=== PATIENT | male | born 1970 | race Caucasian/White ===

== ENCOUNTER 2018-07-01 05:37 | Emergency (ER) | payer SELFPAY ==
--- NOTE | 2018-07-01 06:37 | ER Document Report ---
ED General - General Mode of Arrival: Medic Information source: Patient - HPI Onset: Just prior to arrival Onset/Duration: Sudden Quality of pain: No pain Severity: None Pain Level: Denies Associated symptoms: None Exacerbated by: Denies Relieved by: Denies <CHELI BARRY - Last Filed: 07/01/18 14:55> <ANGELICA DAVILA - Last Filed: 07/02/18 09:40> - General Stated Complaint: PSYCH Time Seen by Provider: 07/01/18 05:49 Notes: Patient brought in by EMS for anxiousness, paranoid delusions, hallucinations. Patient is unable to provide a history. Patient does not know what medical problems he has, if he is on medications, how he came to the emergency dep artment. In the room, patient is paranoid that the police are after him. After reassurance that no police are here or after him he continues to ask questions like "are they here to arrest me?", "where are the handcuffs?", "Is there a dog here you're going to have attack me?", "Are you planning on tazing me?", "Are you going to send me to skilled nursing?". Patient will also make comments about things that are not there. He said, "look at my boots in the corner, they have dog shit on them." He was pointing to the corner but no boots were there. He also said that he needed to take the phone call and was looking for his "ringing phone" but no phone was around. (CHELI BARRY) Past Medical History - General Information source: Patient - Social History Smoking Status: Unknown if Ever Smoked Family History: Reviewed & Not Pertinent <CHELI BARRY - Last Filed: 07/01/18 14:55> Review of Systems - Review of Systems Constitutional: No symptoms reported EENT: No symptoms reported Cardiovascular: No symptoms reported Respiratory: No symptoms reported Gastrointestinal: No symptoms reported Genitourinary: No symptoms reported Male Genitourinary: No symptoms reported Musculoskeletal: No symptoms reported Skin: No symptoms reported Hematologic/Lymphatic: No symptoms reported Neurological/Psychological: Anxiety, Hallucinations -: Yes All other systems reviewed and negative <CHELI BARRY - Last Filed: 07/01/18 14:55> Physical Exam <CHELI BARRY - Last Filed: 07/01/18 14:55> - Vital signs Vitals: Temp Pulse Resp BP Pulse Ox 98.3 F 85 20 170/80 H 98 07/01/18 06:20 07/01/18 06:20 07/01/18 06:20 07/01/18 06:20 07/01/18 06:20 - Notes Notes: PHYSICAL EXAMINATION: GENERAL: Well-appearing, well-nourished and in no acute distress. HEAD: Atraumatic, normocephalic. EYES: Pupils equal round and reactive to light, extraocular movements intact, sclera anicteric, conjunctiva are normal. ENT: Nares patent, oropharynx clear without exudates. Moist mucous membranes. NECK: Normal range of motion, supple without lymphadenopathy LUNGS: Breath sounds clear to auscultation bilaterally and equal. No wheezes rales or rhonchi. HEART: Regular rate and rhythm without murmurs ABDOMEN: Soft, nontender, nondistended abdomen. No guarding, no rebound. No masses appreciated. Musculoskeletal: Normal range of motion, no pitting or edema. No cyanosis. NEUROLOGICAL: Cranial nerves grossly intact. Normal speech, normal gait. Normal sensory, motor exams PSYCH: anxious. +hallucinations SKIN: Warm, Dry, normal turgor, no rashes or lesions noted. (CHELI BARRY) Course - Laboratory Result Diagrams: 07/01/18 06:59 07/01/18 06:59 <CHELI BARRY - Last Filed: 07/01/18 14:55> - Laboratory Result Diagrams: 07/01/18 06:59 07/01/18 06:59 <ANGELICA DAVILA - Last Filed: 07/02/18 09:40> - Re-evaluation Re-evalutation: 07/01/18 07:17 EKG: Ventricular rate 73, MD interval 168, cures duration 90, QTc 437, normal sinus rhythm. No ST segment elevation. Peaked T waves appreciated. 07/01/18 10:[address] Núñez, the patient's primary care physician. He knows him very well. He states that the patient's sodium is been chronically low for the last 3 years. He feels that the patient needs to be admitted to a psychiatric treatment facility. Behavioral health contacted. Recommend Thorazine 50mg q6 PRN and cogentin 1mg daily. They are trying to find placement. Urinalysis pending 07/01/18 14:53 07/01/18 14:55 (CHELI BARRY) - Vital Signs Vital signs: Temp Pulse Resp BP Pulse Ox 97.8 F 70 16 115/70 100 07/02/18 08:00 07/02/18 08:00 07/02/18 08:00 07/02/18 08:00 07/02/18 08:00 - Laboratory Laboratory results interpreted by me: 07/01/18 07/01/18 06:59 06:59 RBC 3.91 L Hgb 13.2 L Hct 36.3 L MCH 33.7 H MCHC 36.2 H Plt Count 454 H Sodium 126.5 L Chloride 92 L Glucose 119 H Salicylates < 1.0 L Acetaminophen < 10 L Discharge <CHELI BARRY - Last Filed: 07/01/18 14:55> <ANGELICA DAVILA - Last Filed: 07/02/18 09:40> - Discharge Clinical Impression: Malingering Condition: Stable Disposition: HOME, SELF-CARE Additional Instructions: You have been evaluated and assessed at [facility] Emergency Department by both the medical and behavioral health teams after presenting for altered mental status and are now deemed appropriate for discharge. While in the ED, you received an initial medical screening, lab work, EKG, medications, direct staff observation, clinical evaluation, physician assessment, and outpatient resources. You were cleared from both services and record review revealed a history of alcohol abuse and collateral report indicated a pattern of presenting to the ED in lieu of presenting for scheduled court dates. You are encouraged to develop positive co ping skills through outpatient therapy and medication management. Mobile crisis resources were provided to you for when crisis situations arise. You are also encouraged to to follow up with your outpatient mental health provider referred to you by [facility] last week and maintain compliance with your prescribed medication. Referrals: [facility] [Provider Group] - Follow up as needed
--- NOTE | 2018-07-01 07:01 | EKG REPORT ---
SEVERITY:- NORMAL ECG - SINUS RHYTHM : Confirmed by: Pooja Austin 01-Jul-2018 07:01:17
[2018-07-01 07:28] LABS: ABSOLUTE BASOPHILS # (AUTO) 0.1 10^3/uL (0.0-0.2); ABSOLUTE LYMPHOCYTES (AUTO) 1.3 10^3/uL (0.5-4.7); ABSOLUTE MONOCYTES (AUTO) 0.8 10^3/uL (0.1-1.4); ABSOLUTE NEUT (AUTO) 4.8 10^3/uL (1.7-8.2); BASOPHILS % (AUTO) 0.8 % (0-2); EOSINOPHILS % (AUTO) 0.5 % (0-6); HEMATOCRIT 36.3 % (37.9-51.0); HEMOGLOBIN 13.2 g/dL (13.5-17.0); LYMPHOCYTES % (AUTO) 18.3 % (13-45); MEAN CORPUSCULAR HEMOGLOBIN 33.7 pg (27.0-33.4); MEAN CORPUSCULAR HGB CONC 36.2 g/dL (32.0-36.0); MEAN CORPUSCULAR VOLUME 93 fl (80-97); MONOCYTES % (AUTO) 11.4 % (3-13); PLATELET COUNT 454 10^3/uL (150-450); RED BLOOD COUNT 3.91 10^6/uL (4.35-5.55); RED CELL DISTRIBUTION WIDTH 13.4 % (11.5-14.0); TOTAL CELLS COUNTED % (AUTO) 100 %
[2018-07-01 07:42] LABS: ACETAMINOPHEN < 10 ug/mL (10-30); ALCOHOL < 10 mg/dL (NONE DETECTED); ALKALINE PHOSPHATASE 68 U/L (38-126); ANION GAP 11 (5-19); ASPARTATE AMINO TRANSFERASE 28 U/L (17-59); BILIRUBIN,DIRECT 0.2 mg/dL (0.0-0.4); BILIRUBIN,TOTAL 0.6 mg/dL (0.2-1.3); BLOOD UREA NITROGEN 12 mg/dL (7-20); CALCIUM 9.8 mg/dL (8.4-10.2); CARBON DIOXIDE 24 mmol/L (22-30); CHLORIDE 92 mmol/L (98-107); GLUCOSE 119 mg/dL (75-110); POTASSIUM 4.5 mmol/L (3.6-5.0); SALICYLATE < 1.0 mg/dL (2.0-20.0); SODIUM 126.5 mmol/L (137-145); TOTAL PROTEIN 7.3 g/dL (6.3-8.2)
[2018-07-01 08:06] LABS: ALANINE AMINOTRANSFERASE 48 U/L (21-72)
[2018-07-01] MEDS ORDERED: NORMAL SALINE 1000 ML 1,000 ML IV ONE (08:08)
[2018-07-01 08:43] LABS: FREE T4 (FREE THYROXINE) 1.09 ng/dL (0.78-2.19)
[2018-07-01 08:57] LABS: THYROID STIMULATING HORMONE 0.59 uIU/mL (0.47-4.68)
[2018-07-01] MEDS ORDERED: CHLORPROMAZINE HCL INJ 25 MG/1 ML AMPULE IV ONE (11:20)
[2018-07-01] MEDS ORDERED: BENZTROPINE MESYLATE 1 MG TABLET PO ONE (11:21)
[2018-07-01] MEDS ORDERED: CHLORPROMAZINE HCL 50 MG TABLET PO ONE (11:22)
[2018-07-01] MEDS ORDERED: CHLORPROMAZINE HCL 50 MG TABLET PO PRN (11:22)
[2018-07-01] MEDS ORDERED: CHLORPROMAZINE HCL INJ 25 MG/1 ML AMPULE IM PRN (12:01)
[2018-07-01] MEDS: BENZTROPINE MESYLATE INJ 2 MG/2 ML AMPULE IM SCH (12:14)
--- NOTE | 2018-07-01 16:55 | PSYCHOLOGICAL NOTE ---
Psych Note - Psych Note Date seen by psych provider: 07/01/18 Time seen by psych provider: 07:30 Psych Note: Reason for consult: Anxiety, paranoid delusions Contact Permissions: Patient is a 48 yo male presenting to the ED via EMS called by his mother for concerns of anxiety and paranoid delusions. Chart review shows patient was seen in 12/2015 for erratic behavior was positive for Benzodiazepines, seen on 06/01, 06/04, and 06/07/2018 for AV/H with EtOH. Toxicology screen is negative for all substances today. There were abnormalities in his chemistry and hematology noted. Patient reports with flight of ideas and in rapid succession he's been awake for 6 days, has no idea who he is, reports seeing a woman cursing at him in the hallway, reports he has a big glass pill on his face that's impeding his sight (he wears glasses), Evaluators shoes are dog shit, thinks he won the [employer] and has lots of money, has hand tremors and sees himself walking down the hallway. Patient has been observed threatening staff that he will urinate on himself and he has also been observed to be completely lucid and comprehending and cooperative when being assisted out of his restraints so that he and his bed could be cleaned up after he had urinated on himself. Patient's sister Marjorie Moeller [phone] reports patient has no MH hx and the family has no MH hx. Patient had a similar episode in 2016 of AMS which cleared after treating low sodium and high blood pressure. More recently, patient's family started noticing changes in patient 2 months ago i.e. confusion, can't think/focus, is not sleeping/drinks 2-3 beers to sleep, speech is tangential/thoughts disorganized. On 05/30/18 patient was asked by his employer, [email or web address] to take leave due to AMS, shortly thereafter he was accused and charged with touching a woman inappropriately. Patient was fired from [email or web address] on 06/17/[address] was set for 06/25/18. Patient admitted himself voluntarily to [facility] on 06/24/18 and was discharged on 07/05/18, was treated for low sodium and high blood pressure, was fine on Sunday and then on Kevin spent $8000 on his mothers credit card and barricaded himself in her home causing her to call EMS for his bizarre behavior. Patient is alert and oriented x 4. Mood is anxious with congruent affect. Patient denies SI, HI and endorses visual hallucinations but does not appear to be responding to internal stimuli aeb maintains good eye contact, engages with staff attention seeking versus isolating and responding to his own internal reality, comprehends his treatment and no delusions were noted. Conversational speech was WNL for rate, tone, and prosody. Thought processes were linear, organized, and rational when it suited him e.g. when he wanted out of restraint to get cleaned up. Intellectual abilities were estimated within the average range. Attention/concentration was WNL while, insight, judgment, and impulse control were poor. Diagnosis: R/O V65.2 Z76.5 Malingering Medication recommendations as per psychiatric provider, Dr. Koenig are as follows: Thorazine 50mg Q6 PRN Cogentin 1mg daily Patient is recommended for IVC due to risk of harm to self and others aeb erratic behavior and bizarre verbalizations indicate concern of poor insight, judgment, and impulse control. Plan is to hold overnight for further observation and medication stabilization. There is concern of malingering as patient's presentation is inconsistent for psychosis. Further, it is known that patient admitted himself voluntarily to [facility] on 06/24/18 in lieu of going to court. His presentations of AMS to the ED in May also coincide with court dates. Nevertheless, his MRI does show chronic microvascular ischemic changes. Consulted Dr. Covington in the care and treatment of this patient and ED physician who is in agreement with recommendation and disposition.
[2018-07-01 18:41] LABS: APPEARANCE,URINE CLEAR; BILIRUBIN,URINE NEGATIVE (NEGATIVE); COLOR,URINE YELLOW; GLUCOSE, URINE NEGATIVE (NEGATIVE); KETONES,URINE NEGATIVE (NEGATIVE); LEUKOCYTE ESTERASE,URINE NEGATIVE (NEGATIVE); NITRITE,URINE NEGATIVE (NEGATIVE); PROTEIN,URINE NEGATIVE (NEGATIVE); URINE SPECIFIC GRAVITY 1.004; UROBILINOGEN,URINE NEGATIVE mg/dL (<2.0)
[2018-07-01 18:52] LABS: URINE AMPHETAMINES SCREEN NEGATIVE; URINE BARBITURATES SCREEN NEGATIVE; URINE BENZODIAZEPINES SCREEN NEGATIVE; URINE COCAINE SCREEN NEGATIVE; URINE MARIJUANA (THC) SCREEN NEGATIVE; URINE METHADONE SCREEN NEGATIVE; URINE PHENCYCLIDINE SCREEN NEGATIVE
[2018-07-02 08:41] VITALS: BP 115/70
[2018-07-02] MEDS: BENZTROPINE MESYLATE INJ 2 MG/2 ML AMPULE IM SCH (09:53)
--- NOTE | 2018-07-02 09:54 | ER Document Report ---
Doctor's Note Notes: 07/02/18 09:52 Patient seen and evaluated by myself. Vital signs are stable. No issues overnight per nursing. Behavioral health was consulted yesterday. They saw the patient and feel that the patient may be malingering. They state that all of his presentations correspond with court dates. Patient symptoms have completely resolved. They feel that he can be discharged. They provided him information for [facility] and patient has an appointment on Sunday. Patient's mom is coming to pick him up. Patient currently denies any suicidal or homicidal ideations. Patient is awake, alert, oriented x3. He is not having any delusions or hallucinations in the room. Patient is stable for discharge.
[2018-07-02] MEDS ORDERED: BENZTROPINE MESYLATE 1 MG TABLET PO SCH (10:00)
--- NOTE | 2018-07-02 14:13 | PSYCHOLOGICAL NOTE ---
Psych Note - Psych Note Date seen by psych provider: 07/02/18 Time seen by psych provider: 09:15 Psych Note: Reason for consult: Anxiety, paranoid delusions 1st re-evaluation Contact Permissions: Patient is a 48 yo male presenting to the ED via EMS called by his mother for concerns of anxiety and paranoid delusions. Chart review shows patient was seen in 12/2015 for erratic behavior was positive for Benzodiazepines, seen on 06/01, 06/04, and 06/07/2018 for AV/H with EtOH. Toxicology screen is negative for all substances for this visit. There is no MH or family MH hx for this patient who was behavioral yesterday endorsing visual hallucinations aeb would not follow direction to stay in his room, was screaming, threatening to urinate and defecate on himself and did urinate on himself and ultimately was restrained due to his unrelenting onslaught of behaviors. Medication recommendations were provided and patient slept through the day. Today by all staff report and Legal Director observation, patient is clear, calm, and coherent, has been pleasant and polite. Patient showered then called his mother to come pick him up for discharge prior to being evaluated. He reports today that he is "back to normal" and explains his AMS yesterday was due to [employer] didn't fill his amlodipine and buspar from his treatment at [facility]. These are ready now and he can pick them up today on his way home per report. Patient denies SI, HI, and AV/H. Patient was then confronted with his court dates coinciding with his last few [facility] ED visits and his [facility] voluntary admission last week. He does not deny the correlation and offers states he will call the [employer]ating [employer] T[employer]'s office to push back his court date. Confronted patient that his behavior was perceived and understood to be malingering and provided education that abuse of emergency services was considered a criminal offense. Patient verbalized his understanding. He was then provided with psycho-education on utilization of MCS and encouraged to utilize this service and follow up with his PCP Dr. Núñez. Patient was additionally provided with a resource list for local MH providers. Patient is alert and oriented x 4. Mood is euthymic with congruent affect. Patient denies/endorses SI, HI, and AV/H, does not appear to be responding to internal stimuli, and no delusions were noted. Conversational speech was WNL for rate, tone, and prosody. Eye contact was well maintained. Immediate and remote memory were good. Thought processes were linear, organized, and rational. Intellectual abilities were estimated within the average range. Attention/concentration was WNL while, insight, judgment, and impulse control were good. Diagnosis: R/O V65.2 Z76.5 Malingering Medication recommendations as per psychiatric provider, Dr. Koenig are as follows: Thorazine 50mg Q6 PRN Cogentin 1mg daily Impression/Plan: Patient is psychiatrically clear from acute psychiatric services and recommend to rescind IVC due to no risk of harm to self or others aeb Patient denies SI, HI, and AV/H, does not appear to be responding to internal stimuli, and no delusions were noted. 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 Núñez. Patient was confronted with his pattern of presenting with psychiatric symptoms to avoid court which he does not deny. Confronted patient that his behavior was perceived and understood to be malingering and provided education that abuse of emergency services was considered a criminal offense. Patient verbalized his understanding. He was then provided with psycho- education on utilization of MCS and encouraged to utilize this service and follow up with his PCP Dr. Núñez. Patient was additionally provided with a resource list for local MH providers. Consulted Dr. Covington in the care and treatment of this patient and ED physician who is in agreement with disposition and recommendation.
== END 2018-07-02 10:49 | disposition home or self-care (01) ==
LOC: EDSEX → ER 05:37
DX: Z76.5 Malingerer [conscious simulation] (principal); F41.9 Anxiety disorder, unspecified; F20.0 Paranoid schizophrenia; R44.3 Hallucinations, unspecified
CPT/HCPCS: 93005; 99285; 96372; 96360; 36415; 84439; 80307 ×4; 84443; 85025; 80053; 81001; 93010; J0515 ×2; J3230; J7030

== ENCOUNTER 2018-07-07 09:53 | Inpatient (IN) | payer SELFPAY ==
--- NOTE | 2018-07-07 10:37 | ER Document Report ---
ED Psych Disorder / Suicide - General Chief Complaint: Psych Problem Stated Complaint: PSYCH EVAL Time Seen by Provider: 07/07/18 10:30 Primary Care Provider: ELE MANLEY MD [Primary Care Provider] - Follow up as needed Information source: Emergency Med Personnel Notes: 48-year-old male with past medical history as recorded who was recently seen here and evaluated for some change in mental status. Patient has had troubles with benzodiazepines and alcohol in the past but during his last visit he was cleaned of toxins. Patient at that time was having some flight of ideas and some erratic behavior. It was determined that the patient possibly was having malingering type behavior. Patient was seen by the psychology team and initially started on medications by Dr. Koenig: Thorazine 50mg Q6 PRN Cogentin 1mg daily Patient presents by EMS today after a neighbor called stating that the patient was altered in the long-standing the naked. Patient became slightly combative so they did provide Ativan and Haldol. Patient also has a history in the past of high blood pressure and low sodium. TRAVEL OUTSIDE OF THE [place] IN LAST 30 DAYS: No - HPI Patient complains to provider of: Other - Unable to determine secondary to patient's condition Onset: Other - Unable to determine secondary to patient's condition Quality of pain: Other - Unable to determine secondary to patient's condition Suicide Risk Factors: Other - See above Situational problems related to: Lost job - Recently with [employer] Associated symptoms: Other - Unable to determine secondary to patient's condition Similar symptoms previously: Yes Recently seen / treated by doctor: Yes - Related Data Allergies/Adverse Reactions: No Known Allergies Allergy (Verified 07/04/18 12:52) Past Medical History - Social History Smoking Status: Unknown if Ever Smoked Family History: Reviewed & Not Pertinent Patient has suicidal ideation: No Patient has homicidal ideation: No - Past Medical History Cardiac Medical History: Reports: Hx Hypertension Renal/ Medical History: Denies: Hx Peritoneal Dialysis Psychiatric Medical History: Reports: Hx Depression - Immunizations Hx Diphtheria, Pertussis, Tetanus Vaccination: Yes Review of Systems - Review of Systems -: Yes ROS unobtainable due to patient's medical condition Physical Exam - Vital signs Vitals: Temp Pulse Resp BP Pulse Ox 97.4 F 90 18 100/64 95 07/07/18 10:08 07/07/18 10:08 07/07/18 10:08 07/07/18 10:08 07/07/18 10:08 Notes: Reviewed vital signs and nursing note as charted by RN. CONSTITUTIONAL: Patient's eyes are closed and he is protecting his airway with stable vital signs HEAD: Normocephalic; atraumatic EYES: PERRL ENT: Normal nose; no rhinorrhea; moist mucous membranes; pharynx without lesions noted NECK: Supple without meningismus; no cervical lymphadenopathy, no masses CARD: Regular rate and rhythm; no murmurs; symmetric distal pulses RESP: Normal chest excursion without splinting or tachypnea; breath sounds clear and equal bilaterally; no wheezes, no rhonchi, no rales ABD/GI: Normal bowel sounds; non-distended; soft, no palpable organomegaly or masses BACK: The back appears normal EXT: Normal ROM in all joints; no edema SKIN: No acute lesions noted NEURO: Patient is currently moving only to pain Course - Re-evaluation Re-evalutation: 07/07/18 10:37 Given the above history and physical examination, we will place the patient on the monitor, elevate the bed 45 degrees, and obtain basic labs, tox screen, including a sodium level. Given that the patient was naked in the yard with no signs of trauma, with a history as recorded, I will hold on CT scanning of the patient at this moment. The psychology team has been consulted. 07/07/18 10:55 EKG shows a heart of 67, normal sinus rhythm, normal axis, no obvious ST elevation or depression greater than 1 mm induration. No appreciable change from previous EKG 07/07/18 11:58 Labs as recorded. Patient's sodium is actually on the higher end of his baseline. 07/07/18 12:20 On repeat examination the patient still has no focal neurological deficits. He is answering questions. He denies any pain. 07/07/18 13:38 We have spoke to the family who is in the room. It does appear that the patient has had some confusion since May intermittently. He was seen at [facility], [place] as well as here as discussed above. Patient supposedly did have an MRI of the brain this past May. I will obtain a CT scan of the head at this moment. 07/07/18 14:57 Patient has been a heavy drinker. He has had confusion supposedly starting in May. Alcohol level and labs as recorded. History of low sodium in the past. MRI previously showed some small punctate lesions with no obvious strokes or hemorrhages. With the progressive onset of symptomatology in May and being a heavy drinker, with some confusion I did entertain the possibility of Wernicke's encephalopathy. The patient is oriented x4 but does have some slight gait stability. CT scan of the head is unremarkable. I did order a dose of thiamine. I did call to the primary care physician Dr Fletcher, who was very polite and agreed to admit the patient for some thiamine infusion and reassessment. Patient has had paperwork filled out for IVC given the concern for patient safety to himself, and will have a sitter with the patient. - Vital Signs Vital signs: Temp Pulse Resp BP Pulse Ox 98.4 F 67 16 112/63 99 07/07/18 15:10 07/07/18 15:10 07/07/18 15:10 07/07/18 15:10 07/07/18 15:10 - Laboratory Result Diagrams: 07/07/18 10:17 07/07/18 10:17 Laboratory results interpreted by me: 07/07/18 07/07/18 07/07/18 10:17 10:17 12:09 WBC 11.3 H RBC 3.89 L Hgb 12.8 L Hct 36.4 L Plt Count 517 H Seg Neutrophils % 89.6 H Lymphocytes % 6.0 L Absolute Neutrophils 10.1 H Sodium 127.6 L Chloride 95 L BUN 27 H Urine Ketones TRACE H Salicylates < 1.0 L Acetaminophen < 10 L Critical Care Note - Critical Care Note Total time excluding time spent on procedures (mins): 35 Discharge - Discharge Clinical Impression: Altered mental status, unspecified Qualifiers: Altered mental status type: unspecified Qualified Code(s): R41.82 - Altered mental status, unspecified Condition: Fair Disposition: ADMITTED INPATIENT Admitting Provider: [facility] Unit Admitted: Telemetry Referrals: ELE MANLEY MD [Primary Care Provider] - Follow up as needed
[2018-07-07 11:22] LABS: ABSOLUTE BASOPHILS # (AUTO) 0.1 10^3/uL (0.0-0.2); ABSOLUTE LYMPHOCYTES (AUTO) 0.7 10^3/uL (0.5-4.7); ABSOLUTE MONOCYTES (AUTO) 0.4 10^3/uL (0.1-1.4); ABSOLUTE NEUT (AUTO) 10.1 10^3/uL (1.7-8.2); BASOPHILS % (AUTO) 0.7 % (0-2); EOSINOPHILS % (AUTO) 0.1 % (0-6); HEMATOCRIT 36.4 % (37.9-51.0); HEMOGLOBIN 12.8 g/dL (13.5-17.0); MEAN CORPUSCULAR HEMOGLOBIN 32.9 pg (27.0-33.4); MEAN CORPUSCULAR HGB CONC 35.2 g/dL (32.0-36.0); MEAN CORPUSCULAR VOLUME 94 fl (80-97); MONOCYTES % (AUTO) 3.6 % (3-13); PLATELET COUNT 517 10^3/uL (150-450); RED BLOOD COUNT 3.89 10^6/uL (4.35-5.55); RED CELL DISTRIBUTION WIDTH 13.2 % (11.5-14.0); SEGMENTED NEUTROPHILS % (AUTO) 89.6 % (42-78); TOTAL CELLS COUNTED % (AUTO) 100 %; WHITE BLOOD COUNT 11.3 10^3/uL (4.0-10.5)
[2018-07-07 11:39] LABS: ALANINE AMINOTRANSFERASE 29 U/L (21-72); ALBUMIN 4.6 g/dL (3.5-5.0); ALKALINE PHOSPHATASE 74 U/L (38-126); ANION GAP 8 (5-19); ASPARTATE AMINO TRANSFERASE 38 U/L (17-59); BILIRUBIN,DIRECT 0.2 mg/dL (0.0-0.4); BILIRUBIN,TOTAL 0.5 mg/dL (0.2-1.3); BLOOD UREA NITROGEN 27 mg/dL (7-20); CALCIUM 9.7 mg/dL (8.4-10.2); CARBON DIOXIDE 25 mmol/L (22-30); CHLORIDE 95 mmol/L (98-107); GLUCOSE 96 mg/dL (75-110); POTASSIUM 4.8 mmol/L (3.6-5.0); SODIUM 127.6 mmol/L (137-145); TOTAL PROTEIN 6.9 g/dL (6.3-8.2)
[2018-07-07 11:41] LABS: ACETAMINOPHEN < 10 ug/mL (10-30); ALCOHOL < 10 mg/dL (NONE DETECTED); SALICYLATE < 1.0 mg/dL (2.0-20.0)
[2018-07-07] MEDS ORDERED: NORMAL SALINE 1000 ML 1,000 ML IV ONE (11:57)
[2018-07-07 12:26] LABS: APPEARANCE,URINE CLEAR; BILIRUBIN,URINE NEGATIVE (NEGATIVE); COLOR,URINE YELLOW; GLUCOSE, URINE NEGATIVE (NEGATIVE); KETONES,URINE TRACE mg/dL (NEGATIVE); LEUKOCYTE ESTERASE,URINE NEGATIVE (NEGATIVE); NITRITE,URINE NEGATIVE (NEGATIVE); PROTEIN,URINE NEGATIVE (NEGATIVE); URINE SPECIFIC GRAVITY 1.012; UROBILINOGEN,URINE NEGATIVE mg/dL (<2.0)
[2018-07-07 12:44] LABS: URINE AMPHETAMINES SCREEN NEGATIVE; URINE BARBITURATES SCREEN NEGATIVE; URINE BENZODIAZEPINES SCREEN NEGATIVE; URINE COCAINE SCREEN NEGATIVE; URINE MARIJUANA (THC) SCREEN NEGATIVE; URINE METHADONE SCREEN NEGATIVE; URINE PHENCYCLIDINE SCREEN NEGATIVE
[2018-07-07] MEDS: BUSPIRONE HCL 10 MG TABLET PO SCH ×2 (13:30→18:47)
[2018-07-07] MEDS: DIVALPROEX SODIUM 125 MG CAP.SPRINK PO SCH ×2 (13:30→18:45)
--- NOTE | 2018-07-07 13:36 | RADIOLOGY REPORT (SQ) ---
EXAM DESCRIPTION: CT HEAD WITHOUT COMPLETED DATE/TIME: 07/07/2018 1:23 pm REASON FOR STUDY: 42; AMS COMPARISON: None. TECHNIQUE: Axial images acquired through the brain without intravenous contrast. Images reviewed wi th bone, brain and subdural windows. Images stored on PACS. All CT scanners at this facility use dose modulation, iterative reconstruction, and/or weight based d osing when appropriate to reduce radiation dose to as low as reasonably achievable (ALARA). [facility]: Dose Right [facility]: CareDose [facility]: Dose Right [facility]: Teradose 4D [facility]: Smart Dualog RADIATION DOSE: CT Rad equipment meets quality standard of care and radiation dose reduction techniq ues were employed. CTDIvol: 55.2 mGy. DLP: 1112 mGy-cm. mGy. LIMITATIONS: None. FINDINGS: VENTRICLES: Normal size and contour. CEREBRUM: No mass effect. No hemorrhage. No midline shift. Normal iverson/white matter differentiatio n. No evidence for acute territorial infarction. CEREBELLUM: No mass effect. No hemorrhage. No alteration of density. No evidence for acute infarct ion. EXTRAAXIAL SPACES: No fluid collections. ORBITS AND GLOBE: Symmetrical contour of the globes. CALVARIUM: No depressed skull fracture. PARANASAL SINUSES: No air-fluid level. SOFT TISSUES: No hematoma. IMPRESSION: NO ACUTE INTRACRANIAL IMAGING FINDINGS. EVIDENCE OF ACUTE STROKE: NO. COMMENT: Quality ID # [id number]: Final reports with documentation of one or more dose reduction techniques (e.g., Automated exposure control, adjustment of the mA and/or kV according to patient size, use of iterative reconstruction technique) TECHNICAL DOCUMENTATION: JOB ID: [id number]- All Rights Reserved Reading location - IP/workstation name: [email or web address]
[2018-07-07] MEDS ORDERED: THIAMINE HCL 500 MG in NORMAL SALINE 250 ML IV SCH ×2 (15:00→20:00)
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
[2018-07-07] MEDS ORDERED: THIAMINE HCL INJ 200 MG/2 ML VIAL ONE (16:05)
[2018-07-07] MEDS ORDERED: POTASSI CL 40 MEQ/D5-1/2NS 1L 40 MEQ/1,000 ML RTUINJ IV PRN (17:41)
[2018-07-07 19:13] LABS: INTERNATIONAL RATION (INR) 0.91; PROTHROMBIN TIME 12.7 SEC (11.4-15.4)
[2018-07-07 19:14] LABS: PARTIAL THROMBOPLASTIN TIME 33.2 SEC (23.5-35.8)
[2018-07-07 19:28] LABS: LIPASE 44.4 U/L (23-300); PHOSPHORUS 4.3 mg/dL (2.5-4.5)
[2018-07-07 19:45] LABS: FREE T4 (FREE THYROXINE) 1.04 ng/dL (0.78-2.19)
[2018-07-07 19:59] LABS: THYROID STIMULATING HORMONE 1.84 uIU/mL (0.47-4.68)
[2018-07-08 03:24] LABS: APPEARANCE,URINE CLEAR; BILIRUBIN,URINE NEGATIVE (NEGATIVE); COLOR,URINE YELLOW; GLUCOSE, URINE NEGATIVE (NEGATIVE); KETONES,URINE NEGATIVE (NEGATIVE); LEUKOCYTE ESTERASE,URINE NEGATIVE (NEGATIVE); NITRITE,URINE NEGATIVE (NEGATIVE); PROTEIN,URINE NEGATIVE (NEGATIVE); URINE SPECIFIC GRAVITY 1.017
[2018-07-08 03:40] LABS: URINE AMPHETAMINES SCREEN NEGATIVE; URINE BARBITURATES SCREEN NEGATIVE; URINE BENZODIAZEPINES SCREEN NEGATIVE; URINE COCAINE SCREEN NEGATIVE; URINE MARIJUANA (THC) SCREEN NEGATIVE; URINE METHADONE SCREEN NEGATIVE; URINE PHENCYCLIDINE SCREEN NEGATIVE
[2018-07-08] MEDS ORDERED: THIAMINE HCL 500 MG in NORMAL SALINE 250 ML IV ONE (04:00)
[2018-07-08] MEDS ORDERED: THIAMINE HCL INJ 200 MG/2 ML VIAL ONE (04:16)
[2018-07-08 06:54] LABS: ABSOLUTE BASOPHILS # (AUTO) 0.1 10^3/uL (0.0-0.2); ABSOLUTE EOSINOPHILS # (AUTO) 0.2 10^3/uL (0.0-0.6); ABSOLUTE LYMPHOCYTES (AUTO) 1.2 10^3/uL (0.5-4.7); ABSOLUTE MONOCYTES (AUTO) 0.6 10^3/uL (0.1-1.4); ABSOLUTE NEUT (AUTO) 4.8 10^3/uL (1.7-8.2); BASOPHILS % (AUTO) 1.2 % (0-2); EOSINOPHILS % (AUTO) 2.3 % (0-6); HEMATOCRIT 34.9 % (37.9-51.0); HEMOGLOBIN 12.5 g/dL (13.5-17.0); LYMPHOCYTES % (AUTO) 17.9 % (13-45); MEAN CORPUSCULAR HEMOGLOBIN 33.7 pg (27.0-33.4); MEAN CORPUSCULAR HGB CONC 35.8 g/dL (32.0-36.0); MEAN CORPUSCULAR VOLUME 94 fl (80-97); MONOCYTES % (AUTO) 8.9 % (3-13); PLATELET COUNT 473 10^3/uL (150-450); RED BLOOD COUNT 3.72 10^6/uL (4.35-5.55); RED CELL DISTRIBUTION WIDTH 13.4 % (11.5-14.0); SEGMENTED NEUTROPHILS % (AUTO) 69.7 % (42-78); TOTAL CELLS COUNTED % (AUTO) 100 %; WHITE BLOOD COUNT 6.9 10^3/uL (4.0-10.5)
[2018-07-08 07:06] LABS: ALANINE AMINOTRANSFERASE 23 U/L (21-72); ALBUMIN 4.1 g/dL (3.5-5.0); ALKALINE PHOSPHATASE 58 U/L (38-126); ANION GAP 7 (5-19); ASPARTATE AMINO TRANSFERASE 27 U/L (17-59); BILIRUBIN,DIRECT 0.2 mg/dL (0.0-0.4); BILIRUBIN,TOTAL 0.4 mg/dL (0.2-1.3); BLOOD UREA NITROGEN 13 mg/dL (7-20); CALCIUM 8.9 mg/dL (8.4-10.2); CARBON DIOXIDE 28 mmol/L (22-30); CHLORIDE 94 mmol/L (98-107); CHOLESTEROL 163.79 mg/dL (0-200); GLUCOSE 64 mg/dL (75-110); POTASSIUM 5.5 mmol/L (3.6-5.0); SODIUM 128.7 mmol/L (137-145); TOTAL PROTEIN 6.3 g/dL (6.3-8.2); TRIGLYCERIDES 27 mg/dL (<150)
[2018-07-08 07:18] LABS: DIRECT LDL 77 mg/dL (<100)
--- NOTE | 2018-07-08 07:24 | EKG REPORT ---
SEVERITY:- BORDERLINE ECG - SINUS RHYTHM ST ELEV, PROBABLE NORMAL EARLY REPOL PATTERN BORDERLINE PROLONGED QT INTERVAL : Confirmed by: Mary Dorado MD 08-Jul-2018 07:23:44
[2018-07-08] MEDS: DIVALPROEX SODIUM 125 MG CAP.SPRINK PO SCH ×2 (09:50→17:11)
[2018-07-08] MEDS: BUSPIRONE HCL 10 MG TABLET PO SCH ×2 (09:51→17:11)
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
[2018-07-08] MEDS: THIAMINE HCL 500 MG in NORMAL SALINE 250 ML IV SCH ×2 (13:18→22:38)
--- NOTE | 2018-07-08 21:22 | PDOC H&P ---
History of Present Illness Admission Date/PCP: 07/07/18 16:01 ELE MANLEY MD History of Present Illness: ANGEL CHAVEZ JR is a 48 year old male, Patient is an alcoholic he was behaving inappropriately apparently he was naked in his yard in this very cold weather he was brought to the emergency room for evaluation the plan is to IVC him but there is concern he may have wernicke encephalopathy and that he needed IV thiamine. I saw the patient in the emergency room is more lucid and appropriate at the time of my evaluation, he lost his job partly from alcohol drunkenness and abuse Past Medical History Cardiac Medical History: Reports: Hypertension Psychiatric Medical History: Reports: Depression Past Surgical History Past Surgical History: Reports: Appendectomy, Orthopedic Surgery Social History Smoking Status: Current Every Day Smoker Cigarettes Packs Per Day: 20 Cigars Per Day: 0 Pipes Per Day: 0 Number of Years Smokin Last Time Smoked: 07/06/2017 Frequency of Alcohol Use: Heavy Hx Recreational Drug Use: No Drugs: None Hx Prescription Drug Abuse: No - Advance Directive Resuscitation Status: Full Code Family History Family History: Reviewed & Not Pertinent Parental Family History Reviewed: Yes Children Family History Reviewed: Yes Sibling(s) Family History Reviewed.: Yes Medication/Allergy Home Medications: Buspirone HCl [Buspar 5 mg Tablet] 10 mg PO BID 06/01/18 Olmesartan Medoxomil [Benicar] 40 mg PO DAILY 06/01/18 Amlodipine Besylate [Norvasc 10 mg Tablet] 10 mg PO DAILY 07/08/18 Allergies/Adverse Reactions: No Known Allergies Allergy (Verified 07/04/18 12:52) Physical Exam Vital Signs: Temp Pulse Resp BP Pulse Ox 97.8 F 85 16 137/96 H 100 07/08/18 20:30 07/08/18 20:30 07/08/18 20:30 07/08/18 20:30 07/08/18 20:30 Intake & Output 07/07/18 07/08/18 07/09/18 06:59 06:59 06:59 Intake Total 2680 755 Output Total 550 Balance 2130 755 Weight 59.786 kg General appearance: PRESENT: no acute distress Eye exam: PRESENT: PERRLA Ear exam: PRESENT: normal external ear exam Neck exam: PRESENT: full ROM Respiratory exam: PRESENT: clear to auscultation thuan Cardiovascular exam: PRESENT: RRR, +S1, +S2 Vascular exam: PRESENT: normal capillary refill GI/Abdominal exam: PRESENT: normal bowel sounds, soft Rectal exam: PRESENT: deferred Neurological exam: PRESENT: alert, CN II-XII grossly intact Skin exam: PRESENT: dry, intact, warm Results Laboratory Results: 07/08/18 06:25 07/08/18 06:25 07/08/18 07/08/18 07/08/18 03:10 06:25 06:25 WBC 6.9 RBC 3.72 L Hgb 12.5 L Hct 34.9 L MCV 94 MCH 33.7 H MCHC 35.8 RDW 13.4 Plt Count 473 H Seg Neutrophils % 69.7 Lymphocytes % 17.9 Monocytes % 8.9 Eosinophils % 2.3 Basophils % 1.2 Absolute Neutrophils 4.8 Absolute Lymphocytes 1.2 Absolute Monocytes 0.6 Absolute Eosinophils 0.2 Absolute Basophils 0.1 Sodium 128.7 L Potassium 5.5 H Chloride 94 L Carbon Dioxide 28 Anion Gap 7 BUN 13 Creatinine 0.61 Est GFR ( Amer) > 60 Est GFR (Non-Af Amer) > 60 Glucose 64 L Calcium 8.9 Total Bilirubin 0.4 AST 27 ALT 23 Alkaline Phosphatase 58 Total Protein 6.3 Albumin 4.1 Triglycerides 27 Cholesterol 163.79 LDL Cholesterol Direct 77 VLDL Cholesterol 5.0 L HDL Cholesterol 81 Urine Color YELLOW Urine Appearance CLEAR Urine pH 6.0 Ur Specific [place] 1.017 Urine Protein NEGATIVE Urine Glucose (UA) NEGATIVE Urine Ketones NEGATIVE Urine Blood NEGATIVE Urine Nitrite NEGATIVE Ur Leukocyte Esterase NEGATIVE Urine WBC (Auto) 0 Urine RBC (Auto) 1 07/07/18 10:17 Troponin I 0.012 Impressions: Head CT 07/07/18 13:04 IMPRESSION: NO ACUTE INTRACRANIAL IMAGING FINDINGS. EVIDENCE OF ACUTE STROKE: NO. Assessment & Plan - Diagnosis (1) Wernicke encephalopathy Is this a current diagnosis for this admission?: Yes Plan: Treat with IV thiamine
[2018-07-09 05:31] LABS: ABSOLUTE BASOPHILS # (AUTO) 0.1 10^3/uL (0.0-0.2); ABSOLUTE EOSINOPHILS # (AUTO) 0.3 10^3/uL (0.0-0.6); ABSOLUTE LYMPHOCYTES (AUTO) 1.4 10^3/uL (0.5-4.7); ABSOLUTE MONOCYTES (AUTO) 0.6 10^3/uL (0.1-1.4); ABSOLUTE NEUT (AUTO) 4.4 10^3/uL (1.7-8.2); BASOPHILS % (AUTO) 1.3 % (0-2); EOSINOPHILS % (AUTO) 4.3 % (0-6); HEMATOCRIT 33.7 % (37.9-51.0); HEMOGLOBIN 12.3 g/dL (13.5-17.0); LYMPHOCYTES % (AUTO) 20.8 % (13-45); MEAN CORPUSCULAR HEMOGLOBIN 34.1 pg (27.0-33.4); MEAN CORPUSCULAR HGB CONC 36.4 g/dL (32.0-36.0); MEAN CORPUSCULAR VOLUME 94 fl (80-97); MONOCYTES % (AUTO) 8.5 % (3-13); PLATELET COUNT 433 10^3/uL (150-450); RED BLOOD COUNT 3.61 10^6/uL (4.35-5.55); RED CELL DISTRIBUTION WIDTH 13.2 % (11.5-14.0); SEGMENTED NEUTROPHILS % (AUTO) 65.1 % (42-78); TOTAL CELLS COUNTED % (AUTO) 100 %; WHITE BLOOD COUNT 6.8 10^3/uL (4.0-10.5)
[2018-07-09 05:59] LABS: ALANINE AMINOTRANSFERASE 14 U/L (21-72); ALKALINE PHOSPHATASE 53 U/L (38-126); ANION GAP 8 (5-19); ASPARTATE AMINO TRANSFERASE 21 U/L (17-59); BILIRUBIN,DIRECT 0.2 mg/dL (0.0-0.4); BILIRUBIN,TOTAL 0.3 mg/dL (0.2-1.3); BLOOD UREA NITROGEN 9 mg/dL (7-20); CALCIUM 8.9 mg/dL (8.4-10.2); CARBON DIOXIDE 26 mmol/L (22-30); CHLORIDE 93 mmol/L (98-107); GLUCOSE 94 mg/dL (75-110); SODIUM 126.6 mmol/L (137-145); TOTAL PROTEIN 6.1 g/dL (6.3-8.2)
[2018-07-09] MEDS: THIAMINE HCL 500 MG in NORMAL SALINE 250 ML IV SCH ×3 (06:01→21:07)
[2018-07-09] MEDS: BUSPIRONE HCL 10 MG TABLET PO SCH ×2 (10:29→17:45)
[2018-07-09] MEDS: DIVALPROEX SODIUM 125 MG CAP.SPRINK PO SCH ×2 (10:30→17:45)
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
--- NOTE | 2018-07-09 19:14 | RADIOLOGY REPORT (SQ) ---
EXAM DESCRIPTION: CHEST SINGLE VIEW COMPLETED DATE/TIME: 07/09/2018 5:52 pm REASON FOR STUDY: left chest pain COMPARISON: None. EXAM PARAMETERS: NUMBER OF VIEWS: One view. TECHNIQUE: Single frontal radiographic view of the chest acquired. RADIATION DOSE: NA LIMITATIONS: None. FINDINGS: LUNGS AND PLEURA: No opacities, masses or pneumothorax. No pleural effusion. MEDIASTINUM AND HILAR STRUCTURES: No masses. Contour normal. HEART AND VASCULAR STRUCTURES: Heart normal in size. Normal vasculature. BONES: No acute findings. HARDWARE: Surgical changes in the right clavicle. OTHER: No other significant finding. IMPRESSION: NO ACUTE RADIOGRAPHIC FINDING IN THE CHEST. TECHNICAL DOCUMENTATION: JOB ID: [id number] [employer]- All Rights Reserved Reading location - IP/workstation name: [email or web address]
--- NOTE | 2018-07-09 20:43 | PDOC PROGRESS REPORT ---
Subjective Progress Note for:: 07/09/18 Subjective:: Patient seen by the bedside, Reason For Visit: WERNICKE ENCEPHALOPATHY Physical Exam Vital Signs: Temp Pulse Resp BP Pulse Ox 98.2 F 60 16 143/90 H 99 07/09/18 19:39 07/09/18 19:39 07/09/18 19:39 07/09/18 19:39 07/09/18 19:39 Intake & Output 07/08/18 07/09/18 07/10/18 06:59 06:59 06:59 Intake Total 2680 1865 755 Output Total 550 Balance 2130 1865 755 Weight 59.786 kg 60.4 kg General appearance: PRESENT: no acute distress, well-developed, well-nourished Head exam: PRESENT: atraumatic, normocephalic Eye exam: PRESENT: conjunctiva pink, EOMI, PERRLA Ear exam: PRESENT: normal external ear exam Mouth exam: PRESENT: moist, tongue midline Neck exam: PRESENT: full ROM Respiratory exam: PRESENT: clear to auscultation thuan Cardiovascular exam: PRESENT: RRR, +S1, +S2 Pulses: PRESENT: normal dorsalis pedis pul, +2 pedal pulses bilateral Vascular exam: PRESENT: normal capillary refill GI/Abdominal exam: PRESENT: normal bowel sounds, soft Rectal exam: PRESENT: deferred Neurological exam: PRESENT: alert, awake, oriented to person, oriented to place, oriented to time, oriented to situation, CN II-XII grossly intact Psychiatric exam: PRESENT: appropriate affect, normal mood Skin exam: PRESENT: dry, intact, warm Results Laboratory Results: 07/09/18 05:03 07/09/18 05:03 07/09/18 07/09/18 05:03 05:03 WBC 6.8 RBC 3.61 L Hgb 12.3 L Hct 33.7 L MCV 94 MCH 34.1 H MCHC 36.4 H RDW 13.2 Plt Count 433 Seg Neutrophils % 65.1 Lymphocytes % 20.8 Monocytes % 8.5 Eosinophils % 4.3 Basophils % 1.3 Absolute Neutrophils 4.4 Absolute Lymphocytes 1.4 Absolute Monocytes 0.6 Absolute Eosinophils 0.3 Absolute Basophils 0.1 Sodium 126.6 L Potassium 5.0 Chloride 93 L Carbon Dioxide 26 Anion Gap 8 BUN 9 Creatinine 0.52 Est GFR ( Amer) > 60 Est GFR (Non-Af Amer) > 60 Glucose 94 Calcium 8.9 Total Bilirubin 0.3 AST 21 ALT 14 L Alkaline Phosphatase 53 Total Protein 6.1 L Albumin 4.0 07/07/18 12:09 Clean Catch Midstream Urine Culture - Final NO GROWTH 2 DAYS 07/07/18 10:17 Troponin I 0.012 Impressions: Head CT 07/07/18 13:04 IMPRESSION: NO ACUTE INTRACRANIAL IMAGING FINDINGS. EVIDENCE OF ACUTE STROKE: NO. Chest X-Ray 07/09/18 00:00 IMPRESSION: NO ACUTE RADIOGRAPHIC FINDING IN THE CHEST. Assessment & Plan - Diagnosis (1) Wernicke encephalopathy Is this a current diagnosis for this admission?: Yes Plan: Patient is doing very well responding to treatment he wants to go home, advised to stay 1 more day
[2018-07-09] MEDS ORDERED: TRAZODONE HCL 50 MG TABLET PO SCH (22:00)
[2018-07-10] MEDS: THIAMINE HCL 500 MG in NORMAL SALINE 250 ML IV SCH ×2 (05:04→13:52)
[2018-07-10 05:39] LABS: ABSOLUTE BASOPHILS # (AUTO) 0.1 10^3/uL (0.0-0.2); ABSOLUTE EOSINOPHILS # (AUTO) 0.3 10^3/uL (0.0-0.6); ABSOLUTE LYMPHOCYTES (AUTO) 1.6 10^3/uL (0.5-4.7); ABSOLUTE MONOCYTES (AUTO) 0.5 10^3/uL (0.1-1.4); ABSOLUTE NEUT (AUTO) 3.2 10^3/uL (1.7-8.2); BASOPHILS % (AUTO) 1.4 % (0-2); EOSINOPHILS % (AUTO) 5.2 % (0-6); HEMATOCRIT 35.4 % (37.9-51.0); HEMOGLOBIN 12.5 g/dL (13.5-17.0); LYMPHOCYTES % (AUTO) 28.4 % (13-45); MEAN CORPUSCULAR HEMOGLOBIN 33.2 pg (27.0-33.4); MEAN CORPUSCULAR HGB CONC 35.4 g/dL (32.0-36.0); MEAN CORPUSCULAR VOLUME 94 fl (80-97); MONOCYTES % (AUTO) 9.3 % (3-13); PLATELET COUNT 426 10^3/uL (150-450); RED BLOOD COUNT 3.77 10^6/uL (4.35-5.55); RED CELL DISTRIBUTION WIDTH 13.2 % (11.5-14.0); SEGMENTED NEUTROPHILS % (AUTO) 55.7 % (42-78); TOTAL CELLS COUNTED % (AUTO) 100 %; WHITE BLOOD COUNT 5.7 10^3/uL (4.0-10.5)
[2018-07-10 05:51] LABS: ALANINE AMINOTRANSFERASE 29 U/L (21-72); ALKALINE PHOSPHATASE 54 U/L (38-126); ANION GAP 10 (5-19); ASPARTATE AMINO TRANSFERASE 20 U/L (17-59); BILIRUBIN,DIRECT 0.2 mg/dL (0.0-0.4); BILIRUBIN,TOTAL 0.3 mg/dL (0.2-1.3); BLOOD UREA NITROGEN 8 mg/dL (7-20); CARBON DIOXIDE 25 mmol/L (22-30); CHLORIDE 96 mmol/L (98-107); GLUCOSE 84 mg/dL (75-110); POTASSIUM 4.8 mmol/L (3.6-5.0); SODIUM 130.5 mmol/L (137-145)
[2018-07-10] MEDS: BUSPIRONE HCL 10 MG TABLET PO SCH (09:26)
[2018-07-10] MEDS: DIVALPROEX SODIUM 125 MG CAP.SPRINK PO SCH (09:26)
[2018-07-10 16:29] VITALS: BP 159/99
--- NOTE | 2018-07-10 18:17 | PDOC DISCHARGE SUMMARY ---
General - Admit/Disc Date/PCP Admission Date/Primary Care Provider: 07/07/18 16:01 ELE MANLEY MD Discharge Date: 07/10/18 - Discharge Diagnosis (1) Wernicke encephalopathy Is this a current diagnosis for this admission?: Yes (2) Alcoholism Is this a current diagnosis for this admission?: Yes - Additional Information Resuscitation Status: Full Code Discharge Diet: Regular Discharge Activity: Activity As Tolerated Prescriptions: RX: Trazodone HCl [Desyrel 50 mg Tablet] 50 mg PO QHS #30 tablet RX: Amlodipine Besylate [Norvasc 10 mg Tablet] 10 mg PO DAILY #30 tablet RX: Divalproex Sodium [Depakote Sprinkle 125 mg Capsule] 250 mg PO BID #60 cap. sprink RX: Olmesartan Medoxomil [Benicar] 40 mg PO DAILY #30 tablet Thiamine HCl [Thiamine 100 mg Tablet] 100 mg PO DAILY #30 tablet Home Medications: RX: Buspirone HCl [Buspar 5 mg Tablet] 10 mg PO BID 06/01/18 RX: Amlodipine Besylate [Norvasc 10 mg Tablet] 10 mg PO DAILY #30 tablet 07/10/18 RX: Divalproex Sodium [Depakote Sprinkle 125 mg Capsule] 250 mg PO BID #60 c ap.sprink 07/10/18 RX: Olmesartan Medoxomil [Benicar] 40 mg PO DAILY #30 tablet 07/10/18 RX: Trazodone HCl [Desyrel 50 mg Tablet] 50 mg PO QHS #30 tablet 07/10/18 Thiamine HCl [Thiamine 100 mg Tablet] 100 mg PO DAILY #30 tablet 07/10/18 History of Present Illness History of Present Illness: ANGEL CHAVEZ JR is a 48 year old male, Patient is an alcoholic he was behaving inappropriately apparently he was naked in his yard in this very cold weather he was brought to the emergency room for evaluation the plan is to IVC him but there is concern he may have wernicke encephalopathy and that he needed IV thiamine. I saw the patient in the emergency room is more lucid and appropriate at the time of my evaluation, he lost his job partly from alcohol drunkenness and abuse Hospital Course Hospital Course: Patient was admitted for the management of wernicke encephalopathy, on presentation it was felt that patient needed to be involuntarily committed, he was seen by psychiatry and was cleared. Because of concern for Wernicke's encephalopathy he was treated with high-dose thiamine 500 mg IV every 8 hour and patient seemed to respond very well,he regained full alertness , I recommend 7 days of IV therapy but patient insisted he was going home today Physical Exam Vital Signs: Temp Pulse Resp BP Pulse Ox 98.2 F 63 16 128/76 H 99 07/10/18 16:15 07/10/18 16:15 07/10/18 16:15 07/10/18 16:15 07/10/18 16:15 Intake & Output 07/09/18 07/10/18 07/11/18 06:59 06:59 06:59 Intake Total 1865 1745 255 Balance 1865 1745 255 Weight 60.4 kg 60.4 kg General appearance: PRESENT: no acute distress, well-developed, well-nourished Head exam: PRESENT: atraumatic, normocephalic Eye exam: PRESENT: conjunctiva pink, EOMI, PERRLA Ear exam: PRESENT: normal external ear exam Mouth exam: PRESENT: moist, tongue midline Neck exam: PRESENT: full ROM Respiratory exam: PRESENT: clear to auscultation thuan Cardiovascular exam: PRESENT: RRR, +S1, +S2 Pulses: PRESENT: normal dorsalis pedis pul, +2 pedal pulses bilateral Vascular exam: PRESENT: normal capillary refill GI/Abdominal exam: PRESENT: normal bowel sounds, soft Rectal exam: PRESENT: deferred Neurological exam: PRESENT: alert, awake, oriented to person, oriented to place, oriented to time, oriented to situation, CN II-XII grossly intact Psychiatric exam: PRESENT: appropriate affect, normal mood Skin exam: PRESENT: dry, intact, warm Results Laboratory Results: 07/10/18 03:44 07/10/18 03:44 07/10/18 07/10/18 03:44 03:44 WBC 5.7 RBC 3.77 L Hgb 12.5 L Hct 35.4 L MCV 94 MCH 33.2 MCHC 35.4 RDW 13.2 Plt Count 426 Seg Neutrophils % 55.7 Lymphocytes % 28.4 Monocytes % 9.3 Eosinophils % 5.2 Basophils % 1.4 Absolute Neutrophils 3.2 Absolute Lymphocytes 1.6 Absolute Monocytes 0.5 Absolute Eosinophils 0.3 Absolute Basophils 0.1 Sodium 130.5 L Potassium 4.8 Chloride 96 L Carbon Dioxide 25 Anion Gap 10 BUN 8 Creatinine 0.52 Est GFR ( Amer) > 60 Est GFR (Non-Af Amer) > 60 Glucose 84 Calcium 9.0 Total Bilirubin 0.3 AST 20 ALT 29 Alkaline Phosphatase 54 Total Protein 6.0 L Albumin 4.0 07/07/18 10:17 Troponin I 0.012 Impressions: Head CT 07/07/18 13:04 IMPRESSION: NO ACUTE INTRACRANIAL IMAGING FINDINGS. EVIDENCE OF ACUTE STROKE: NO. Chest X-Ray 07/09/18 00:00 IMPRESSION: NO ACUTE RADIOGRAPHIC FINDING IN THE CHEST. Qualifiers - * PATIENT BEING DISCHARGED WITH ANY OF THE FOLLOWING DIAGNOSIS: No
== END 2018-07-10 16:56 | disposition home or self-care (01) | DRG 641 ==
LOC: ER 09:53 → EH 16:01 → 5 07-08 21:00
PROVIDERS: ADMIT Internal Medicine; ATTEND Family Medicine
DX: E51.2 Wernicke's encephalopathy (principal); F10.20 Alcohol dependence, uncomplicated; Y90.0 Blood alcohol level of less than 20 mg/100 ml; I10 Essential (primary) hypertension; F32.9 Major depressive disorder, single episode, unspecified; F17.210 Nicotine dependence, cigarettes, uncomplicated
CPT/HCPCS: 36415; 70450; 71045; 80048; 80053; 80061; 80076; 80307; 81001; 82140; 82150; 83036; 83690; 83735; 84100; 84439; 84443; 84484; 85025; 85610; 85730; 87040; 87086; 93005; 93010; 96360; 99291; J3411; J3480; J3490; J7030; J7050

== ENCOUNTER 2018-07-12 18:40 | Emergency (ER) | payer SELFPAY ==
[2018-07-12 20:03] LABS: APPEARANCE,URINE SLIGHTLY-CLOUDY; BILIRUBIN,URINE NEGATIVE (NEGATIVE); COLOR,URINE YELLOW; GLUCOSE, URINE NEGATIVE (NEGATIVE); KETONES,URINE TRACE mg/dL (NEGATIVE); LEUKOCYTE ESTERASE,URINE NEGATIVE (NEGATIVE); NITRITE,URINE NEGATIVE (NEGATIVE); PROTEIN,URINE NEGATIVE (NEGATIVE); URINE SPECIFIC GRAVITY 1.014
[2018-07-12 20:22] LABS: URINE AMPHETAMINES SCREEN NEGATIVE; URINE BARBITURATES SCREEN NEGATIVE; URINE BENZODIAZEPINES SCREEN NEGATIVE; URINE COCAINE SCREEN NEGATIVE; URINE MARIJUANA (THC) SCREEN NEGATIVE; URINE METHADONE SCREEN NEGATIVE; URINE PHENCYCLIDINE SCREEN NEGATIVE
[2018-07-12] MEDS ORDERED: DIPHENHYDRAMINE HCL 50 MG/ML VIAL IM ONE (21:10)
[2018-07-12] MEDS ORDERED: HALOPERIDOL LACTATE INJ 5 MG/1 ML VIAL IM ONE (21:10)
[2018-07-12] MEDS ORDERED: LORAZEPAM INJ 2 MG/1 ML VIAL IM ONE (21:11)
[2018-07-12] MEDS ORDERED: THIAMINE HCL INJ 200 MG/2 ML VIAL ONE ×2 (21:56→22:04)
[2018-07-12] MEDS ORDERED: FOLIC ACID INJ 5 MG/1 ML 10 ML VIAL ONE (21:57)
[2018-07-12 22:00] LABS: ABSOLUTE BASOPHILS # (AUTO) 0.1 10^3/uL (0.0-0.2); ABSOLUTE EOSINOPHILS # (AUTO) 0.2 10^3/uL (0.0-0.6); ABSOLUTE LYMPHOCYTES (AUTO) 1.4 10^3/uL (0.5-4.7); ABSOLUTE MONOCYTES (AUTO) 0.6 10^3/uL (0.1-1.4); ABSOLUTE NEUT (AUTO) 6.5 10^3/uL (1.7-8.2); EOSINOPHILS % (AUTO) 2.1 % (0-6); HEMATOCRIT 37.7 % (37.9-51.0); HEMOGLOBIN 13.4 g/dL (13.5-17.0); MEAN CORPUSCULAR HEMOGLOBIN 33.4 pg (27.0-33.4); MEAN CORPUSCULAR HGB CONC 35.6 g/dL (32.0-36.0); MEAN CORPUSCULAR VOLUME 94 fl (80-97); MONOCYTES % (AUTO) 6.4 % (3-13); PLATELET COUNT 477 10^3/uL (150-450); RED BLOOD COUNT 4.01 10^6/uL (4.35-5.55); RED CELL DISTRIBUTION WIDTH 13.4 % (11.5-14.0); SEGMENTED NEUTROPHILS % (AUTO) 74.5 % (42-78); TOTAL CELLS COUNTED % (AUTO) 100 %; WHITE BLOOD COUNT 8.8 10^3/uL (4.0-10.5)
--- NOTE | 2018-07-12 22:00 | ER Document Report ---
Addendum entered and electronically signed by SHAW BELL MD 07/13/18 17:55: Discharge - Discharge Clinical Impression: Korsakoff syndrome, Alcoholism, Confusion, Hyponatremia Condition: Stable Disposition: HOME, SELF-CARE Additional Instructions: You have been evaluated both medical and behavioral health teams have been d eemed appropriate for discharge. 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 Please continue taking medications as previously prescribed during your [facility]. To clarify home medications: Thiamine 100 mg daily Benicar 40 mg daily Depakote 500 mg twice daily Norvasc 10 mg daily BuSpar 5 mg twice daily risperidone 0.25 mg every 8 AM and 3 PM Please do not take your home medication of Trazadone AT ANY TIME, IF YOUR SYMPTOMS CHANGE SIGNIFICANTLY OR WORSEN OR YOU DEVELOP NEW SYMPTOMS, RETURN TO THE EMERGENCY DEPARTMENT IMMEDIATELY FOR RE-EVALUATION. Prescriptions: Divalproex Sodium [Depakote ER 500 mg Tab.sr] 500 mg PO BID #14 tab.sr.24h Risperidone [Risperdal 0.25 mg Tablet] 0.25 mg PO BID #14 tablet Referrals: [facility] [Outside] - Follow up as needed ELE NÚÑEZ MD [Primary Care Provider] - Follow up as needed Addendum entered and electronically signed by ELLA PHAM LCSWA 07/13/18 12:59: Discharge - Discharge Clinical Impression: Korsakoff syndrome, Alcoholism, Confusion, Hyponatremia Condition: Stable Disposition: HOME, SELF-CARE Additional Instructions: You have been evaluated both medical and behavioral health teams have been deemed appropriate for discharge. 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 Please continue taking medications as previously prescribed during your [facility]. To clarify home medications: Thiamine 100 mg daily Benicar 40 mg daily Depakote 500 mg twice daily Norvasc 10 mg daily BuSpar 5 mg twice daily risperidone 0.25 mg every 8 AM and 3 PM Please do not take your home medication of Trazadone AT ANY TIME, IF YOUR SYMPTOMS CHANGE SIGNIFICANTLY OR WORSEN OR YOU DEVELOP NEW SYMPTOMS, RETURN TO THE EMERGENCY DEPARTMENT IMMEDIATELY FOR RE-EVALUATION. Referrals: [facility] [Outside] - Follow up as needed ELE NÚÑEZ MD [Primary Care Provider] - Follow up as needed Addendum entered and electronically signed by ELLA PHAM LCSWA 07/13/18 10:59: Discharge - Discharge Clinical Impression: Korsakoff syndrome, Alcoholism, Confusion, Hyponatremia Condition: Stable Disposition: HOME, SELF-CARE Additional Instructions: You have been evaluated both medical and behavioral health teams have been deemed appropriate for discharge. 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 Please continue taking medications as previously prescribed during your recent [facility] visit. AT ANY TIME, IF YOUR SYMPTOMS CHANGE SIGNIFICANTLY OR WORSEN OR YOU DEVELOP NEW SYMPTOMS, RETURN TO THE EMERGENCY DEPARTMENT IMMEDIATELY FOR RE-EVALUATION. Referrals: [facility] [Outside] - Follow up as needed ELE NÚÑEZ MD [Primary Care Provider] - Follow up as needed Addendum entered and electronically signed by ELLA PHAM LCSWA 07/13/18 09:55: Discharge - Discharge Clinical Impression: Korsakoff syndrome, Alcoholism, Confusion, Hyponatremia Condition: Stable Disposition: HOME, SELF-CARE Additional Instructions: You have been evaluated both medical and behavioral health teams have been deemed appropriate for discharge. You recommended to follow-up with neurology. Please continue taking medications as previously prescribed during your recent [facility] visit. AT ANY TIME, IF YOUR SYMPTOMS CHANGE SIGNIFICANTLY OR WORSEN OR YOU DEVELOP NEW SYMPTOMS, RETURN TO THE EMERGENCY DEPARTMENT IMMEDIATELY FOR RE-EVALUATION. Referrals: ELE NÚÑEZ MD [Primary Care Provider] - Follow up as needed [facility] [Outside] - Follow up as needed Addendum entered and electronically signed by BABITA ORR DO 07/13/18 01:01: Course - Re-evaluation Re-evalutation: 07/13/18 00:57 social work consult placed. I suspect patient may require alternate living situation if he is truly has Korsakoff syndrome, which I suspect. - Laboratory Result Diagrams: 07/12/18 21:50 07/12/18 21:50 Laboratory results interpreted by me: 07/12/18 07/12/18 07/12/18 19:30 21:50 21:50 RBC 4.01 L Hgb 13.4 L Hct 37.7 L Plt Count 477 H Sodium 128.4 L Chloride 91 L Urine Ketones TRACE H Urine Urobilinogen 2.0 H Salicylates < 1.0 L Acetaminophen < 10 L Original Note: ED General - General Chief Complaint: Psych Problem Stated Complaint: PSYCH EVAL Time Seen by Provider: 07/12/18 19:38 Primary Care Provider: ELE NÚÑEZ MD [Primary Care Provider] - Follow up as needed Mode of Arrival: Medic Information source: Relative, Emergency Med Personnel, [facility] Records Cannot obtain history due to: Altered mental status Notes: 48-year-old male with hypertension, chronic alcoholism, chronic hyponatremia, recent hospitalization for Warnicke's encephalopathy presents via EMS with confusion. Patient was discharged from [facility] July 10, 2018 after being treated for Warnicke's encephalopathy. Patient unable to provide any history. He is alert and oriented x2. He denies any physical complaints including headache, nausea, vomiting, chest pain, shortness of breath. TRAVEL OUTSIDE OF THE [place] IN LAST 30 DAYS: No - HPI Onset: Just prior to arrival - Related Data Allergies/Adverse Reactions: No Known Allergies Allergy (Verified 07/04/18 12:52) Past Medical History - General Information source: Patient, [facility] Records - Social History Smoking Status: Unknown if Ever Smoked Frequency of alcohol use: Heavy Drug Abuse: None Lives with: Family Family History: Reviewed & Not Pertinent Patient has suicidal ideation: No Patient has homicidal ideation: No - Past Medical History Cardiac Medical History: Reports: Hx Hypertension Denies: Hx Atrial Fibrillation, Hx Congestive Heart Failure, Hx Heart Attack, Hx Hypercholesterolemia Pulmonary Medical History: Denies: Hx Asthma, Hx Bronchitis, Hx COPD, Hx Pneumonia, Hx Tuberculosis Neurological Medical History: Denies: Hx Migraine, Hx Seizures Endocrine Medical History: Denies: Hx Diabetes Mellitus Type 1, Hx Diabetes Mellitus Type 2 Renal/ Medical History: Denies: Hx End Stage Renal Disease, Hx Kidney Stones, Hx Peritoneal Dialysis GI Medical History: Denies: Hx Gastroesophageal Reflux Disease, Hx Hiatal Hernia, Hx Ulcer Musculoskeletal Medical History: Denies Hx Arthritis Psychiatric Medical History: Reports: Hx Depression Past Surgical History: Reports: Hx Appendectomy, Hx Oral Surgery, Hx Orthopedic Surgery. Denies: Hx Abdominal Surgery, Hx Bowel Surgery, Hx Cardiac Catheterization, Hx Cardiac Surgery, Hx Cholecystectomy, Hx Genitourinary Surge ry, Hx Kidney (Renal Surgery), Hx Neurologic Surgery, Hx Nose Surgery, Hx Open Heart Surgery, Hx Pancreatic Surgery, Hx Pituitary Surgery, Hx Rectal Surgery, Hx Testicular Surgery, Hx Thyroid Surgery, Hx Tonsillectomy, Hx Urinary Tract Surgery, Hx Vascular Surgery - Immunizations Hx Diphtheria, Pertussis, Tetanus Vaccination: Yes Review of Systems - Review of Systems -: Yes ROS unobtainable due to patient's medical condition Physical Exam - Notes Notes: PHYSICAL EXAMINATION: GENERAL: Well-appearing, well-nourished and in no acute distress. HEAD: Atraumatic, normocephalic. EYES: Pupils equal round and reactive to light, extraocular movements intact, sclera anicteric, conjunctiva are normal. ENT: Nares patent, oropharynx clear without exudates. Moist mucous membranes. NECK: Normal range of motion, supple without lymphadenopathy LUNGS: Breath sounds clear to auscultation bilaterally and equal. No wheezes rales or rhonchi. HEART: Regular rate and rhythm without murmurs ABDOMEN: Soft, nontender, nondistended abdomen. No guarding, no rebound. No masses appreciated. Musculoskeletal: Normal range of motion, no pitting or edema. No cyanosis. NEUROLOGICAL: Alert and oriented x2. Does not follow commands. PSYCH: Confused, agitated SKIN: Warm, Dry, normal turgor, no rashes or lesions noted. Course - Re-evaluation Re-evalutation: Laboratory 07/12/18 07/12/18 07/12/18 19:30 19:30 21:50 WBC 8.8 RBC 4.01 L Hgb 13.4 L Hct 37.7 L MCV 94 MCH 33.4 MCHC 35.6 RDW 13.4 Plt Count 477 H Seg Neutrophils % 74.5 Lymphocytes % 16.0 Monocytes % 6.4 Eosinophils % 2.1 Basophils % 1.0 Absolute Neutrophils 6.5 Absolute Lymphocytes 1.4 Absolute Monocytes 0.6 Absolute Eosinophils 0.2 Absolute Basophils 0.1 Sodium Potassium Chloride Carbon Dioxide Anion Gap BUN Creatinine Est GFR ( Amer) Est GFR (Non-Af Amer) Glucose Calcium Total Bilirubin Direct Bilirubin Neonat Total Bilirubin Neonat Direct Bilirubin Neonat Indirect Bili AST ALT Alkaline Phosphatase Total Protein Albumin Urine Color YELLOW Urine Appearance SLIGHTLY-CLOUDY Urine pH 7.0 Ur Specific Occidental 1.014 Urine Protein NEGATIVE Urine Glucose (UA) NEGATIVE Urine Ketones TRACE H Urine Blood NEGATIVE Urine Nitrite NEGATIVE Urine Bilirubin NEGATIVE Urine Urobilinogen 2.0 H Ur Leukocyte Esterase NEGATIVE Urine WBC (Auto) 0 Urine RBC (Auto) 0 Urine Mucus (Auto) RARE Urine Ascorbic Acid NEGATIVE Salicylates Urine Opiates Screen NEGATIVE Urine Methadone Screen NEGATIVE Acetaminophen Ur Barbiturates Screen NEGATIVE Ur Phencyclidine Scrn NEGATIVE Ur Amphetamines Screen NEGATIVE U Benzodiazepines Scrn NEGATIVE Urine Cocaine Screen NEGATIVE U Marijuana (THC) Screen NEGATIVE Serum Alcohol 07/12/18 21:50 WBC RBC Hgb Hct MCV MCH MCHC RDW Plt Count Seg Neutrophils % Lymphocytes % Monocytes % Eosinophils % Basophils % Absolute Neutrophils Absolute Lymphocytes Absolute Monocytes Absolute Eosinophils Absolute Basophils Sodium 128.4 L Potassium 4.8 Chloride 91 L Carbon Dioxide 26 Anion Gap 11 BUN 11 Creatinine 0.55 Est GFR ( Amer) > 60 Est GFR (Non-Af Amer) > 60 Glucose 102 Calcium 9.9 Total Bilirubin 0.5 Direct Bilirubin 0.1 Neonat Total Bilirubin Not Reportable Neonat Direct Bilirubin Not Reportable Neonat Indirect Bili Not Reportable AST 23 ALT 28 Alkaline Phosphatase 79 Total Protein 7.4 Albumin 4.9 Urine Color Urine Appearance Urine pH Ur Specific Occidental Urine Protein Urine Glucose (UA) Urine Ketones Urine Blood Urine Nitrite Urine Bilirubin Urine Urobilinogen Ur Leukocyte Esterase Urine WBC (Auto) Urine RBC (Auto) Urine Mucus (Auto) Urine Ascorbic Acid Salicylates < 1.0 L Urine Opiates Screen Urine Methadone Screen Acetaminophen < 10 L Ur Barbiturates Screen Ur Phencyclidine Scrn Ur Amphetamines Screen U Benzodiazepines Scrn Urine Cocaine Screen U Marijuana (THC) Screen Serum Alcohol < 10 07/12/18 22:31 48-year-old male well-known to the department presents via EMS with reports of "talking out of his head". Patient is chronically hyponatremic, has a history of chronic alcoholism, had a recent admission with discharge 2 days ago for Wernicke's encephalopathy. Upon review of the patient's discharge summary patient was at his baseline upon discharge. Patient was discharged home with thiamine but is unable to tell me whether he has been taking his medications appropriately or not. Patient is alert and oriented x2. There is no family at the bedside upon the patient's arrival. He is able to tell me his birthday and who the president is but cannot tell me where he lives or where he is currently. Patient did not know that he had a fianc. Significant laboratory findings include a CMP that shows hyponatremia which is chronic for the patient. Patient did require sedation to obtain IV access, blood work. Patient did receive Ativan, Haldol and Benadryl during his ED course due to patient being agitated, uncooperative and attempting to leave the emergency department. Urine drug screen is negative. Serum alcohol is negative. I did speak to the patient's mother at length regarding the patient's recent behavior. She states that since the patient was discharged home he has been watched continuously by herself and his fiance. She states that the patient has not started drinking again. He has been getting his discharge medications which are listed below. She reports these medications have been given by his fiance. She states earlier today the patient started throwing furniture and objects around his home. He then came to her house and became very demanding. She states that he repeatedly called her "bitch, Homo, Patino". She also states patient told her that he was hungry and when she gave him the ingredients to make a sandwich he stated that he did not know how to make a sandwich. She states that the confusion progressively wor sened and she called EMS and mobile crisis. She states when the EMS worker told the patient to get up and walk he asked "how do I do that?". Patient was seen by Dr. Renee earlier today and mother reports that they were told that the patient would "never work again." Mother reports that the worker from mobile crisis informed her that he will have the patient evaluated by psychiatry tomorrow. Unclear who the patient's mother was speaking to as I was not told initially that mobile crisis was involved. I did speak to Dr. Ortega on-call for Dr. Núñez and reviewed the patient's findings, recent admission. He states that he cannot find justification for admission of this patient at this time. Patient does not have capacity to make decisions and will be held overnight for psychiatric evaluation. Patient has no tremors, tachycardia. I have seen the patient 3 times previously and he has had similar presentations. I fear that the patient has Korsakoff syndrome due to his amnesia, and ability to perform simple activities. After reviewing the literature there is no treatment for this. Amnesia is usually irreversible. Patients often need chronic supervision. This is common in patients who have recently suffered Wernicke's encephalopathy. 07/12/18 22:53 discharge 07-10-18 Home Medications: RX: Buspirone HCl [Buspar 5 mg Tablet] 10 mg PO BID 06/01/18 RX: Amlodipine Besylate [Norvasc 10 mg Tablet] 10 mg PO DAILY #30 tablet 07/10/18 RX: Divalproex Sodium [Depakote Sprinkle 125 mg Capsule] 250 mg PO BID #60 cap.sprink 07/10/18 RX: Olmesartan Medoxomil [Benicar] 40 mg PO DAILY #30 tablet 07/10/18 RX: Trazodone HCl [Desyrel 50 mg Tablet] 50 mg PO QHS #30 tablet 07/10/18 Thiamine HCl [Thiamine 100 mg Tablet] 100 mg PO DAILY #30 tablet 07/10/18 07/12/18 23:16 - Laboratory Result Diagrams: 07/12/18 21:50 07/12/18 21:50 Laboratory results interpreted by me: 07/12/18 07/12/18 07/12/18 19:30 21:50 21:50 RBC 4.01 L Hgb 13.4 L Hct 37.7 L Plt Count 477 H Sodium 128.4 L Chloride 91 L Urine Ketones TRACE H Urine Urobilinogen 2.0 H Salicylates < 1.0 L Acetaminophen < 10 L - EKG Interpretation by [facility] EKG shows normal: Sinus rhythm Rate: Normal Rhythm: NSR Heart block present: 1st Degree When compared to previous EKG there are: No significant change Critical Care Note - Critical Care Note Total time excluding time spent on procedures (mins): 40 - Minutes of critical care time spent in direct contact evaluating and reevaluating the patient, treating symptoms, reviewing labs and studies and speaking with family and consultants excluding any procedures Discharge - Discharge Clinical Impression: Korsakoff syndrome, Alcoholism, Confusion, Hyponatremia Condition: Fair Referrals: ELE NÚÑEZ MD [Primary Care Provider] - Follow up as needed
[2018-07-12] MEDS: THIAMINE HCL 500 MG, FOLIC ACID 1 MG in NORMAL SALINE 250 ML IV SCH (22:09)
[2018-07-12 22:12] LABS: ALANINE AMINOTRANSFERASE 28 U/L (21-72); ALBUMIN 4.9 g/dL (3.5-5.0); ALKALINE PHOSPHATASE 79 U/L (38-126); ANION GAP 11 (5-19); ASPARTATE AMINO TRANSFERASE 23 U/L (17-59); BILIRUBIN,DIRECT 0.1 mg/dL (0.0-0.4); BILIRUBIN,TOTAL 0.5 mg/dL (0.2-1.3); BLOOD UREA NITROGEN 11 mg/dL (7-20); CALCIUM 9.9 mg/dL (8.4-10.2); CARBON DIOXIDE 26 mmol/L (22-30); CHLORIDE 91 mmol/L (98-107); GLUCOSE 102 mg/dL (75-110); POTASSIUM 4.8 mmol/L (3.6-5.0); SODIUM 128.4 mmol/L (137-145); TOTAL PROTEIN 7.4 g/dL (6.3-8.2)
[2018-07-12 22:13] LABS: ACETAMINOPHEN < 10 ug/mL (10-30); ALCOHOL < 10 mg/dL (NONE DETECTED); SALICYLATE < 1.0 mg/dL (2.0-20.0)
--- NOTE | 2018-07-13 08:43 | EKG REPORT ---
SEVERITY:- ABNORMAL ECG - SINUS RHYTHM NONSPECIFIC INTRAVENTRICULAR CONDUCTION DELAY : Confirmed by: Harvinder Katz MD 13-Jul-2018 08:42:44
--- NOTE | 2018-07-13 09:53 | PSYCHOLOGICAL NOTE ---
Addendum entered and electronically signed by LELA PHAM LCSWA 07/13/18 11:12: [facility] referral submitted Original Note: Psych Note - Psych Note Date seen by psych provider: 07/13/18 Time seen by psych provider: 08:00 Psych Note: Reason for Consult:Confusion 48-year-old male with hypertension, chronic alcoholism, chronic hyponatremia, recent hospitalization for Warnicke's encephalopathy presents via EMS with c onfusion. Clinician notes patient needs to be awoken for evaluation. Once awoken, he openly engages with clinician. He reports that his family made him come in because they think that he is "talking too much."He states that he feels his medication is what is doing that to him. He continued to state that he has been taking his medications as directed that he received upon discharge. When asked about alcohol consumption he reports that he never drinks more than 2 beers a day. Clinician engaged psychoeducation on the importance of abstaining from alcohol (toxicology reports indicated no alcohol in the patient's system upon arrival). He reports his family thinks he talks to much but he thinks it is a side effect from his medications. He reports he wanted to leave last night and was upset that his family made him come back in. Upon ending evaluation, patient demonstrated orientation to circumstance and awareness of self and surroundings. He patient requested if it was possible for his food and coffee to be warmed up. He also noted that monitor on his finger was coming off and wanted to notified staff in case it was important. Patient is alert and orientated to person, place, time and circumstance. Mood is euthymic with congruent affect. Patient denies suicidal and homicidal ideation. Delusions are absent behaviors congruent with an intact reality based presentation i.e. organized and linear thought process. Eye contact is well- maintained. Conversational speech is within normal rate, tone and prosody. Intellectual abilities appear to be within the average range. Attention and concentration are good. Insight, judgment, impulse control are fair. Diagnosis: Possible neurocognitive disorder; with noted sun downers characteristics History of substance abuse Medication recommendations as per psychiatric provider, Dr. Koenig are as follows: Depakote sprinkles 500 mg twice daily BuSpar 5 mg twice daily Rispirdone .025mg every 8am and every 3pm Impression/Plan: Patient is recommended for rescind of IVC and is cleared from acute psychiatric services. Patient has a history of substance abuse (alcoholism); however, family reported during last [facility] visit on 07/09/2018 the patient has had recent significant decrease in alcohol consumption. Patient's family also reported current presentation has been occurring on and off going back to 2015, the most current starting in May. It is noted the patient comes to [facility] ED in the evening with confusion, paranoia and combative but then the next morning presents with no concerns of responding to internal stimuli, organized and linear conversation, and completely oriented (ie person, place, time and circumstance). There is significant concern the patient is demonstrating a neurocognitive disorder and is recommended to follow up with neurology. Patient is recommended to continue medications previously recommended during his last [facility] visit. Dr. Covington was consulted and care management this patient; attending physicians agreement with recommendations and disposition.
--- NOTE | 2018-07-13 09:59 | ER Document Report ---
Doctor's Note Notes: 07/13/18 09:56 Rounds: Chart reviewed and patient interviewed. Patient is calm and cooperative and answers questions appropriately. Was being evaluated for confusion felt to be secondary to long-term alcohol abuse. Vital signs are all normal. Patient's sodium was somewhat low at 128. Otherwise labs were normal. Patient appears to be medically stable for transfer or discharge. Juan Yarbrough MD
[2018-07-13] MEDS: THIAMINE HCL 500 MG, FOLIC ACID 1 MG in NORMAL SALINE 250 ML IV SCH (10:12)
[2018-07-13 13:44] VITALS: BP 125/79
== END 2018-07-13 13:44 | disposition home or self-care (01) ==
LOC: ER 18:40
DX: F10.26 Alcohol dependence with alcohol-induced persisting amnestic disorder (principal); R41.0 Disorientation, unspecified; E87.1 Hypo-osmolality and hyponatremia; I10 Essential (primary) hypertension
CPT/HCPCS: 93005; 36415; 80307 ×4; 85025; 80053; 81001; 93010; J1200; J3490 ×2; J1630; J2060; J3411 ×2; J7050 ×2

== ENCOUNTER 2018-07-20 20:19 | Emergency (ER) | payer SELFPAY ==
[2018-07-20] MEDS ORDERED: THIAMINE HCL 500 MG in NORMAL SALINE 250 ML IV SCH ×2 (20:30→22:00)
[2018-07-20] MEDS ORDERED: DIAZEPAM INJ 10 MG/2 ML DISP.SYRIN IV ONE (20:36)
--- NOTE | 2018-07-20 20:38 | ER Document Report ---
Addendum entered and electronically signed by ELLA PHAM LCSWA 07/21/18 08:21: Discharge - Discharge Clinical Impression: Wernicke encephalopathy, Agitation, Alcohol abuse Condition: Stable Disposition: HOME, SELF-CARE Additional Instructions: You have been evaluated both medical and behavioral health teams have been deeme d appropriate for discharge. 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 Please continue taking medications as previously prescribed during your recent [facility] visit. To clarify home medications: Thiamine 100 mg daily Benicar 40 mg daily Depakote 500 mg twice daily Norvasc 10 mg daily BuSpar 5 mg twice daily risperidone 0.25 mg every 8 AM and 3 PM Please do not take your home medication of Trazadone AT ANY TIME, IF YOUR SYMPTOMS CHANGE SIGNIFICANTLY OR WORSEN OR YOU DEVELOP NEW SYMPTOMS, RETURN TO THE EMERGENCY DEPARTMENT IMMEDIATELY FOR RE-EVALUATION. Referrals: ELE MANLEY MD [Primary Care Provider] - Follow up as needed [facility] [Outside] - Follow up as needed Original Note: ED General - General Stated Complaint: ALTERED MENTAL STATUS Time Seen by Provider: 07/20/18 20:22 Primary Care Provider: ELE MANLEY MD [Primary Care Provider] - Follow up as needed Cannot obtain history due to: Mentally challenged, Uncooperative Notes: Patient is a 48-year-old male well-known to this department, history of Wernicke's Korsakoff syndrome, chronic alcohol abuse, presents with agitation, combativeness. EMS states that family reported the patient was becoming extremely aggressive at home, yelling expletives and was unable to be redirected. EMS was contacted and patient was transferred to the emergency department. No further history is obtained from the patient secondary to his confabulation and agitation. TRAVEL OUTSIDE OF THE [place] IN LAST 30 DAYS: No - Related Data Allergies/Adverse Reactions: No Known Allergies Allergy (Verified 07/04/18 12:52) Past Medical History - General Information source: Emergency Med Personnel Cannot obtain history due to: Mentally challenged, Uncooperative, Altered mental status - Social History Smoking Status: Unknown if Ever Smoked Frequency of alcohol use: Heavy Lives with: Family Family History: Reviewed & Not Pertinent - Past Medical History Cardiac Medical History: Reports: Hx Hypertension Denies: Hx Atrial Fibrillation, Hx Congestive Heart Failure, Hx Heart Attack, Hx Hypercholesterolemia Pulmonary Medical History: Denies: Hx Asthma, Hx Bronchitis, Hx COPD, Hx Pneumonia, Hx Tuberculosis Neurological Medical History: Denies: Hx Migraine, Hx Seizures Endocrine Medical History: Denies: Hx Diabetes Mellitus Type 1, Hx Diabetes Mellitus Type 2 Renal/ Medical History: Denies: Hx End Stage Renal Disease, Hx Kidney Stones, Hx Peritoneal Dialysis GI Medical History: Denies: Hx Gastroesophageal Reflux Disease, Hx Hiatal Hernia, Hx Ulcer Musculoskeletal Medical History: Denies Hx Arthritis Psychiatric Medical History: Reports: Hx Depression Past Surgical History: Reports: Hx Appendectomy, Hx Oral Surgery, Hx Orthopedic Surgery. Denies: Hx Abdominal Surgery, Hx Bowel Surgery, Hx Cardiac Catheterization, Hx Cardiac Surgery, Hx Cholecystectomy, Hx Genitourinary Surgery, Hx Kidney (Renal Surgery), Hx Neurologic Surgery, Hx Nose Surgery, Hx Open Heart Surgery, Hx Pancreatic Surgery, Hx Pituitary Surgery, Hx Rectal Surgery, Hx Testicular Surgery, Hx Thyroid Surgery, Hx Tonsillectomy, Hx Urinary Tract Surgery, Hx Vascular Surgery - Immunizations Hx Diphtheria, Pertussis, Tetanus Vaccination: Yes Review of Systems - Review of Systems -: Yes ROS unobtainable due to patient's medical condition Physical Exam - Vital signs Vitals: BP 194/115 H 07/20/18 20:32 Interpretation: Normal Notes: PHYSICAL EXAMINATION: GENERAL: Appears in no overt distress, talking incessantly, speech content does not make sense, filled with expletives and agitated content HEAD: Atraumatic, normocephalic. EYES: Pupils equal round and reactive to light, extraocular movements intact, sclera anicteric, conjunctiva are normal. ENT: nares patent, oropharynx clear without exudates. Moderately dry mucous membranes. NECK: Normal range of motion, supple without lymphadenopathy LUNGS: Breath sounds clear to auscultation bilaterally and equal. No wheezes rales or rhonchi. HEART: Regular rate and rhythm without murmurs ABDOMEN: Soft, nontender, normoactive bowel sounds. No guarding, no rebound. No masses appreciated. EXTREMITIES: Normal range of motion, no pitting or edema. No cyanosis. NEUROLOGICAL: No focal neurological deficits. Moves all extremities spontaneously. PSYCH: Alert, unable to perform orientation questioning SKIN: Warm, Dry, normal turgor, no rashes or lesions noted. Course - Re-evaluation Re-evalutation: 07/20/18 20:37 Patient is a 48-year-old male, known history of Wernicke-Korsakoff syndrome who presents agitated. The patient is screaming obscenities, no meaningful or coherent thought process at time of presentation. Has a history of similar presentations repeatedly within the past 6 weeks. Has been evaluated by psychiatry and has also been hospitalized previously. Apparently has been noncompliant with thiamine at home. No family members present at bedside initial assessment. Patient is acting extremely aggressive on initial presentation, will be placed in restraints for the safety of staff and his own safety. IV thiamine and diazepam will be administered. Standard psychiatric screening labs will be administered. Initial screening exam unremarkable. 07/20/18 22:56 Patient is resting calmly after 1 mg of lorazepam IV. He is receiving 500 mg of thiamine. We will release restraints. Patient's labs are otherwise unremarkable. He is cleared for evaluation and disposition by behavioral health in the morning. - Vital Signs Vital signs: Temp Pulse Resp BP Pulse Ox 51 L 12 102/65 96 07/21/18 02:12 07/21/18 02:01 07/21/18 02:00 07/21/18 02:01 - Laboratory Result Diagrams: 07/20/18 21:22 07/20/18 21:22 Laboratory results interpreted by me: 07/20/18 07/20/18 21:22 21:22 RBC 4.12 L Sodium 131.3 L Chloride 92 L Salicylates < 1.0 L Acetaminophen < 10 L Discharge - Discharge Clinical Impression: Alcohol abuse, Wernicke encephalopathy, Agitation Referrals: ELE MANLEY MD [Primary Care Provider] - Follow up as needed
[2018-07-20] MEDS ORDERED: LORAZEPAM INJ 2 MG/1 ML VIAL IV ONE (21:28)
[2018-07-20] MEDS ORDERED: THIAMINE HCL INJ 200 MG/2 ML VIAL ONE (21:30)
[2018-07-20 21:31] LABS: ABSOLUTE BASOPHILS # (AUTO) 0.1 10^3/uL (0.0-0.2); ABSOLUTE LYMPHOCYTES (AUTO) 1.5 10^3/uL (0.5-4.7); ABSOLUTE MONOCYTES (AUTO) 0.7 10^3/uL (0.1-1.4); ABSOLUTE NEUT (AUTO) 5.4 10^3/uL (1.7-8.2); BASOPHILS % (AUTO) 0.8 % (0-2); EOSINOPHILS % (AUTO) 0.6 % (0-6); HEMATOCRIT 39.1 % (37.9-51.0); HEMOGLOBIN 13.8 g/dL (13.5-17.0); LYMPHOCYTES % (AUTO) 19.7 % (13-45); MEAN CORPUSCULAR HEMOGLOBIN 33.4 pg (27.0-33.4); MEAN CORPUSCULAR HGB CONC 35.2 g/dL (32.0-36.0); MEAN CORPUSCULAR VOLUME 95 fl (80-97); MONOCYTES % (AUTO) 9.2 % (3-13); PLATELET COUNT 403 10^3/uL (150-450); RED BLOOD COUNT 4.12 10^6/uL (4.35-5.55); RED CELL DISTRIBUTION WIDTH 13.2 % (11.5-14.0); SEGMENTED NEUTROPHILS % (AUTO) 69.7 % (42-78); TOTAL CELLS COUNTED % (AUTO) 100 %; WHITE BLOOD COUNT 7.7 10^3/uL (4.0-10.5)
[2018-07-20 21:47] LABS: ALANINE AMINOTRANSFERASE 31 U/L (21-72); ALBUMIN 4.7 g/dL (3.5-5.0); ALKALINE PHOSPHATASE 81 U/L (38-126); ANION GAP 11 (5-19); ASPARTATE AMINO TRANSFERASE 22 U/L (17-59); BILIRUBIN,DIRECT 0.2 mg/dL (0.0-0.4); BILIRUBIN,TOTAL 0.5 mg/dL (0.2-1.3); BLOOD UREA NITROGEN 14 mg/dL (7-20); CALCIUM 9.6 mg/dL (8.4-10.2); CARBON DIOXIDE 28 mmol/L (22-30); CHLORIDE 92 mmol/L (98-107); GLUCOSE 102 mg/dL (75-110); POTASSIUM 4.3 mmol/L (3.6-5.0); SODIUM 131.3 mmol/L (137-145); TOTAL PROTEIN 6.9 g/dL (6.3-8.2)
[2018-07-20 21:48] LABS: ACETAMINOPHEN < 10 ug/mL (10-30); ALCOHOL < 10 mg/dL (NONE DETECTED); SALICYLATE < 1.0 mg/dL (2.0-20.0)
[2018-07-21 03:47] LABS: APPEARANCE,URINE SLIGHTLY-CLOUDY; BILIRUBIN,URINE NEGATIVE (NEGATIVE); COLOR,URINE AMBER; GLUCOSE, URINE NEGATIVE (NEGATIVE); KETONES,URINE 20 mg/dL (NEGATIVE); LEUKOCYTE ESTERASE,URINE NEGATIVE (NEGATIVE); NITRITE,URINE NEGATIVE (NEGATIVE); PROTEIN,URINE 30 mg/dL (NEGATIVE); URINE SPECIFIC GRAVITY 1.025
[2018-07-21 04:10] LABS: URINE AMPHETAMINES SCREEN NEGATIVE; URINE BARBITURATES SCREEN NEGATIVE; URINE BENZODIAZEPINES SCREEN NEGATIVE; URINE COCAINE SCREEN NEGATIVE; URINE MARIJUANA (THC) SCREEN NEGATIVE; URINE METHADONE SCREEN NEGATIVE; URINE PHENCYCLIDINE SCREEN NEGATIVE
--- NOTE | 2018-07-21 08:16 | PSYCHOLOGICAL NOTE ---
Psych Note - Psych Note Date seen by psych provider: 07/21/18 Time seen by psych provider: 07:50 Psych Note: Reason for Consult:AMS 48-year-old male with hypertension, chronic alcoholism, chronic hyponatremia, recent hospitalization for Warnicke's encephalopathy presents via EMS with confusion. Patient discloses that he is feeling good this morning. He denies any thoughts of wanting harm himself or others. He states that he may have been drinking beer yesterday. He confirms he knows he is not supposed to drink however it is difficult because he has been drinking since he was 10. When asked if he has been taking his medications as directed he confirms that he does have difficulty following through and taking medications as prescribed. Clinician discussed the possibility of allowing family to help him take his medications as directed; Patient does not appear to want assistance as he just shrugs and says may be. Patient discusses openly with clinician about [facility] staff reporting that he prefers to nurse this morning to his nurse from last night because he is being treated nicer. Patient then asked when he can go home. Patient is alert and orientated to person, place, time and circumstance. Mood is euthymic with congruent affect. Patient denies suicidal and homicidal ideation. Delusions are absent behaviors congruent with an intact reality based presentation i.e. organized and linear thought process. Eye contact is well- maintained. Conversational speech is within normal rate, tone and prosody. Intellectual abilities appear to be within the average range. Attention and concentration are good. Insight, judgment, impulse control are fair. Clinician notes patient current presentation follows the same pattern the patient has demonstrated during previous visits. Medication recommendations as per psychiatric provider, Dr. Koenig are as follows: Depakote sprinkles 500 mg twice daily BuSpar 5 mg twice daily Rispirdone .025mg every 8am and every 3pm Diagnosis: Possible neurocognitive disorder; with noted sun downers characteristics History of substance abuse; alcohol Impression/Plan: Patient is cleared from acute psychiatric services. Patient h as a history of substance abuse (alcoholism); however, family reported during a previous [facility] visit (07/09/2018) the patient has had recent significant decrease in alcohol consumption. Patient's family also reported current presentation has been occurring on and off going back to 2015, the most current starting in May. It is noted the patient comes to [facility] ED in the evening with confusion, paranoia and combative but then the next morning presents with no concerns of responding to internal stimuli, organized and linear conversation, and completely oriented (ie person, place, time and circumstance). There is significant concern the patient is demonstrating a neurocognitive disorder and is recommended to follow up with neurology. Patient is recommended to continue medications previously recommended during his previous [facility] visit. During his last (07/13/2018) [facility] visit a referral for [facility] was submitted. Dr. Covington was consulted and care management this patient; attending physicians agreement with recommendations and disposition.
[2018-07-21 09:16] VITALS: BP 150/99
--- NOTE | 2018-07-21 23:53 | EKG REPORT ---
SEVERITY:- OTHERWISE NORMAL ECG - SINUS RHYTHM LEFT AXIS DEVIATION : Confirmed by: Pooja Austin 21-Jul-2018 23:52:05
== END 2018-07-21 09:16 | disposition home or self-care (01) ==
LOC: ER 20:19
DX: F04 Amnestic disorder due to known physiological condition (principal); R45.1 Restlessness and agitation; F10.10 Alcohol abuse, uncomplicated; Z78.1 Physical restraint status; I10 Essential (primary) hypertension
CPT/HCPCS: 93005; 99285; 96375; 96365; 36415; 80307 ×4; 85025; 80053; 81001; 93010; J2060; J3411; J7050

== ENCOUNTER 2018-07-22 11:27 | Emergency (ER) | payer SELFPAY ==
--- NOTE | 2018-07-22 13:21 | ER Document Report ---
ED General - General Chief Complaint: ETOH Abuse Stated Complaint: BEHAVIORAL ISSUES Time Seen by Provider: 07/22/18 12:37 Primary Care Provider: ELE MANLEY MD [ACTIVE STAFF] - Follow up as needed TRAVEL OUTSIDE OF THE [place] IN LAST 30 DAYS: No - HPI Notes: Patient is a 48-year-old male that presents to the emergency department for chief complaint of confusion. Patient presents from home by EMS for altered mental status. He has a history of alcohol abuse in the past and transient delirium. Patient also has a history of Wernicke's encephalopathy. Family reported that he was confused and were the ones that called EMS. Patient usually has confusion in the evenings and was thought to have sundowning. HPI is limited because of patient's current mentation. Family is not present at bedside. Patient's only complaint is a sore throat. He is not sure why he is in the emergency room. He denies drinking alcohol recently. Past Medical History: Warnicke's encephalopathy, alcohol abuse, chronic hyponatremia Past Surgical History: Reviewed in chart Social History: History of alcohol abuse Family History: Reviewed and noncontributory for presenting illness Allergies: Reviewed, see documented allergy list. REVIEW OF SYSTEMS: CONSTITUTIONAL : No fever No chills No diaphoresis No recent illness EENT: No vision changes No congestion sore throat CARDIOVASCULAR: No chest pain No palpitations RESPIRATORY: No shortness of breath No cough No difficulty breathing GASTROINTESTINAL: No abdominal pain No nausea No vomiting No diarrhea GENITOURINARY: No dysuria No hematuria No difficulty urinating MUSCULOSKELETAL: No back pain No leg pain No arm pain SKIN: No rashes No lesions LYMPHATIC: No swollen, enlarged glands. NEUROLOGICAL: No lightheadedness No headache No weakness No paresthesias PSYCHIATRIC: No anxiety No depression PHYSICAL EXAMINATION: Vital signs reviewed, nursing noted reviewed. GENERAL: Well-appearing, well-nourished and in no acute distress. HEAD: Atraumatic, normocephalic. EYES: Bilateral horizontal nystagmus, no ophthalmoplegia, eyes appear normal, extraocular movements intact, sclera anicteric, conjunctiva are normal. ENT: nares patent, oropharynx clear without exudates. Moist mucous membranes. NECK: Normal range of motion, supple without lymphadenopathy LUNGS: Breath sounds clear to auscultation bilaterally and equal. No wheezes rales or rhonchi. HEART: Regular rate and rhythm without murmurs ABDOMEN: Soft, nontender, normoactive bowel sounds. No rebound, guarding, or rigidity. No masses appreciated. EXTREMITIES: Nontender, good range of motion, no pitting or edema. NEUROLOGICAL: Oriented to person and place, disoriented to time and situation. Moves all extremities spontaneously Motor and sensory grossly intact on exam. PSYCH: Flat affect, poor eye contact, withdrawn SKIN: Warm, Dry, normal turgor, no rashes or lesions noted on exposed skin - Related Data Allergies/Adverse Reactions: No Known Allergies Allergy (Verified 07/04/18 12:52) Past Medical History - Social History Smoking Status: Unknown if Ever Smoked Drug Abuse: None Family History: Reviewed & Not Pertinent Patient has suicidal ideation: No Patient has homicidal ideation: No - Past Medical History Cardiac Medical History: Reports: Hx Hypertension Denies: Hx Atrial Fibrillation, Hx Congestive Heart Failure, Hx Heart Attack, Hx Hypercholesterolemia Pulmonary Medical History: Denies: Hx Asthma, Hx Bronchitis, Hx COPD, Hx Pneumonia, Hx Tuberculosis Neurological Medical History: Denies: Hx Migraine, Hx Seizures Endocrine Medical History: Denies: Hx Diabetes Mellitus Type 1, Hx Diabetes Mellitus Type 2 Renal/ Medical History: Denies: Hx End Stage Renal Disease, Hx Kidney Stones, Hx Peritoneal Dialysis GI Medical History: Denies: Hx Gastroesophageal Reflux Disease, Hx Hiatal Hernia, Hx Ulcer Musculoskeletal Medical History: Denies Hx Arthritis Psychiatric Medical History: Reports: Hx Depression Past Surgical History: Reports: Hx Appendectomy, Hx Oral Surgery, Hx Orthopedic Surgery. Denies: Hx Abdominal Surgery, Hx Bowel Surgery, Hx Cardiac Catheterization, Hx Cardiac Surgery, Hx Cholecystectomy, Hx Genitourinary Surgery, Hx Kidney (Renal Surgery), Hx Neurologic Surgery, Hx Nose Surgery, Hx Open Heart Surgery, Hx Pancreatic Surgery, Hx Pituitary Surgery, Hx Rectal Surgery, Hx Testicular Surgery, Hx Thyroid Surgery, Hx Tonsillectomy, Hx Urinary Tract Surgery, Hx Vascular Surgery - Immunizations Hx Diphtheria, Pertussis, Tetanus Vaccination: Yes Physical Exam - Vital signs Vitals: Temp Pulse Resp BP Pulse Ox 97.3 F 78 16 127/90 H 97 07/22/18 11:31 07/22/18 11:31 07/22/18 11:31 07/22/18 11:31 07/22/18 11:31 Course - Re-evaluation Re-evalutation: 07/22/18 13:20 Vitals reviewed. Nursing notes reviewed. Patient has had multiple presentations to the emergency room in the past including most recently for similar presentations. He is acutely altered and will be monitored in the emergency room. Psych has been consulted. 07/22/18 15:22 Patient reevaluated and has had increasing agitated behavior. He is still disoriented to time. He believes he is in a psychiatric gonzalez which is making hi m more angry. I did try to explain he was in the emergency room but he does not believe me. His family is now present at bedside. Lab work had not yet been drawn since patient was refusing. I was not aware he was refusing lab draw until right now. With only at bedside patient has agreed to comply with lab draw. Security was notified of his increasing agitated behavior. He was standing making threatening gestures towards myself during my exam. He was redirectable and once family was at bedside seem to come down and sit. He is not currently requiring chemical or physical restraints. 07/22/18 16:56 Patient's lab work shows a chronic hyponatremia which is similar to previous. He has been ordered medications per psych recommendations. Patient is not capable of understanding his current medical situation and will be monitored in the emergency room tonight. Plan for psych reevaluation in the morning after medication. Laboratory 07/22/18 07/22/18 15:28 15:28 WBC 10.7 H RBC 4.19 L Hgb 14.0 Hct 39.2 MCV 94 MCH 33.4 MCHC 35.7 RDW 13.3 Plt Count 422 Seg Neutrophils % 68.4 Lymphocytes % 19.5 Monocytes % 10.3 Eosinophils % 1.0 Basophils % 0.8 Absolute Neutrophils 7.3 Absolute Lymphocytes 2.1 Absolute Monocytes 1.1 Absolute Eosinophils 0.1 Absolute Basophils 0.1 Sodium 128.6 L Potassium 4.2 Chloride 89 L Carbon Dioxide 27 Anion Gap 13 BUN 14 Creatinine 0.94 Est GFR ( Amer) > 60 Est GFR (Non-Af Amer) > 60 Glucose 94 Calcium 9.8 Total Bilirubin 0.7 Direct Bilirubin 0.3 Neonat Total Bilirubin Not Reportable Neonat Direct Bilirubin Not Reportable Neonat Indirect Bili Not Reportable AST 24 ALT 19 L Alkaline Phosphatase 81 Total Protein 7.4 Albumin 5.0 Salicylates < 1.0 L Acetaminophen < 10 L Valproic Acid 77.9 Serum Alcohol < 10 - Vital Signs Vital signs: Temp Pulse Resp BP Pulse Ox 97.3 F 78 16 127/90 H 97 07/22/18 11:31 07/22/18 11:31 07/22/18 11:31 07/22/18 11:31 07/22/18 11:31 - Laboratory Result Diagrams: 07/22/18 15:28 07/22/18 15:28 Laboratory results interpreted by me: 07/22/18 07/22/18 15:28 15:28 WBC 10.7 H RBC 4.19 L Sodium 128.6 L Chloride 89 L ALT 19 L Salicylates < 1.0 L Acetaminophen < 10 L Discharge - Discharge Clinical Impression: Chronic hyponatremia, Acute confusion Condition: Stable
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
[2018-07-22 15:46] LABS: ABSOLUTE BASOPHILS # (AUTO) 0.1 10^3/uL (0.0-0.2); ABSOLUTE EOSINOPHILS # (AUTO) 0.1 10^3/uL (0.0-0.6); ABSOLUTE LYMPHOCYTES (AUTO) 2.1 10^3/uL (0.5-4.7); ABSOLUTE MONOCYTES (AUTO) 1.1 10^3/uL (0.1-1.4); ABSOLUTE NEUT (AUTO) 7.3 10^3/uL (1.7-8.2); BASOPHILS % (AUTO) 0.8 % (0-2); HEMATOCRIT 39.2 % (37.9-51.0); LYMPHOCYTES % (AUTO) 19.5 % (13-45); MEAN CORPUSCULAR HEMOGLOBIN 33.4 pg (27.0-33.4); MEAN CORPUSCULAR HGB CONC 35.7 g/dL (32.0-36.0); MEAN CORPUSCULAR VOLUME 94 fl (80-97); MONOCYTES % (AUTO) 10.3 % (3-13); PLATELET COUNT 422 10^3/uL (150-450); RED BLOOD COUNT 4.19 10^6/uL (4.35-5.55); RED CELL DISTRIBUTION WIDTH 13.3 % (11.5-14.0); SEGMENTED NEUTROPHILS % (AUTO) 68.4 % (42-78); TOTAL CELLS COUNTED % (AUTO) 100 %; WHITE BLOOD COUNT 10.7 10^3/uL (4.0-10.5)
[2018-07-22 16:11] LABS: ALANINE AMINOTRANSFERASE 19 U/L (21-72); ALKALINE PHOSPHATASE 81 U/L (38-126); ANION GAP 13 (5-19); ASPARTATE AMINO TRANSFERASE 24 U/L (17-59); BILIRUBIN,DIRECT 0.3 mg/dL (0.0-0.4); BILIRUBIN,TOTAL 0.7 mg/dL (0.2-1.3); BLOOD UREA NITROGEN 14 mg/dL (7-20); CALCIUM 9.8 mg/dL (8.4-10.2); CARBON DIOXIDE 27 mmol/L (22-30); CHLORIDE 89 mmol/L (98-107); GLUCOSE 94 mg/dL (75-110); POTASSIUM 4.2 mmol/L (3.6-5.0); SODIUM 128.6 mmol/L (137-145); TOTAL PROTEIN 7.4 g/dL (6.3-8.2)
[2018-07-22 16:18] LABS: ACETAMINOPHEN < 10 ug/mL (10-30); ALCOHOL < 10 mg/dL (NONE DETECTED); SALICYLATE < 1.0 mg/dL (2.0-20.0)
[2018-07-22] MEDS ORDERED: ZIPRASIDONE MESYLATE INJ/PF 20 MG SDV IM ONE (17:17)
[2018-07-22] MEDS: BUSPIRONE HCL 10 MG TABLET PO SCH ×2 (18:19→18:20)
[2018-07-22] MEDS: DIVALPROEX SODIUM 125 MG CAP.SPRINK PO SCH ×2 (18:19→18:20)
[2018-07-22 18:35] LABS: APPEARANCE,URINE SLIGHTLY-CLOUDY; BILIRUBIN,URINE NEGATIVE (NEGATIVE); COLOR,URINE YELLOW; GLUCOSE, URINE 50 mg/dL (NEGATIVE); KETONES,URINE NEGATIVE (NEGATIVE); LEUKOCYTE ESTERASE,URINE NEGATIVE (NEGATIVE); NITRITE,URINE NEGATIVE (NEGATIVE); PROTEIN,URINE NEGATIVE (NEGATIVE); URINE SPECIFIC GRAVITY 1.012
[2018-07-22 18:48] LABS: URINE AMPHETAMINES SCREEN NEGATIVE; URINE BARBITURATES SCREEN NEGATIVE; URINE BENZODIAZEPINES SCREEN UNCONFIRMED POSITIVE; URINE COCAINE SCREEN NEGATIVE; URINE MARIJUANA (THC) SCREEN NEGATIVE; URINE METHADONE SCREEN NEGATIVE; URINE PHENCYCLIDINE SCREEN NEGATIVE
[2018-07-22] MEDS: RISPERIDONE 0.25 MG TABLET PO SCH (21:32)
[2018-07-23] MEDS: RISPERIDONE 0.25 MG TABLET PO SCH ×2 (06:04→13:28)
[2018-07-23 06:11] VITALS: BP 121/75
[2018-07-23] MEDS: BUSPIRONE HCL 10 MG TABLET PO SCH (09:14)
[2018-07-23] MEDS: DIVALPROEX SODIUM 125 MG CAP.SPRINK PO SCH (09:14)
[2018-07-23] MEDS ORDERED: THIAMINE HCL 100 MG TABLET PO ONE (09:31)
--- NOTE | 2018-07-23 09:45 | ER Document Report ---
Doctor's Note Notes: 07/23/18 09:43 I have reviewed the patient's chart, vital signs, labs and seen the patient. He is currently ambulating around the room and out to the phone and is speaking with family. He he is in no discomfort. He is calm and cooperative at this time. Patient is a 48-year-old man with a past history of alcohol abuse who now has Warnicke's encephalopathy. He was brought into the emergency room for acute confusion. He has had similar presentations in the past. He was observed overnight and seen by psychology this morning and we are continuing to observe him. He seems more lucid this morning (compared to the records from yesterday). If he remains lucid and stable, he may be discharged later today. Psychology team has discussed patient's medicine regimen with the family. They do recommend that he follow-up with a neurologist for the Warnicke's encephalopathy and that they should attempt to get power of deputy county attorney. While the patient does live alone, he lives adjacent to his family.
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
== END 2018-07-23 16:35 | disposition home or self-care (01) ==
LOC: ER 11:27
DX: E87.1 Hypo-osmolality and hyponatremia (principal); R41.0 Disorientation, unspecified; F91.9 Conduct disorder, unspecified; I10 Essential (primary) hypertension
CPT/HCPCS: 99285; 96372; 36415; 80307 ×4; 85025; 80053; 81001; 80164; J3486; J3490 ×3

== ENCOUNTER 2018-08-08 09:11 | Emergency (ER) | payer SELFPAY ==
[2018-08-08] MEDS ORDERED: RINGERS SOLUTION,LACTATED 1,000 ML IV ONE (09:37)
[2018-08-08] MEDS ORDERED: THIAMINE HCL 100 MG, FOLIC ACID 1 MG in NORMAL SALINE 250 ML IV ONE (09:37)
--- NOTE | 2018-08-08 09:38 | ER Document Report ---
Addendum entered and electronically signed by ELLA PHAM LCSWA 08/09/18 11:30: Discharge - Discharge Clinical Impression: Behavioral change, Chronic hyponatremia Condition: Stable Disposition: HOME, SELF-CARE Additional Instructions: You have been evaluated both medical and behavioral health teams have been deemed appropriate for discharge. 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 Please continue taking medications as previously prescribed during your recent [facility] visit. To clarify home medications: Thiamine 100 mg daily Benicar 40 mg daily Depakote 500 mg twice daily Norvasc 10 mg daily BuSpar 5 mg twice daily risperidone 0.25 mg every 8 AM and 3 PM Please do not take your home medication of Trazadone Please follow through with the appointment you made with Dr. Ken for August 22, 2018 at 11:30 AM. AT ANY TIME, IF YOUR SYMPTOMS CHANGE SIGNIFICANTLY OR WORSEN OR YOU DEVELOP NEW SYMPTOMS, RETURN TO THE EMERGENCY DEPARTMENT IMMEDIATELY FOR RE-EVALUATION. Referrals: SALEEM KEN MD [COMMUNITY BASED STAFF] - 08/22/18 11:30 am Addendum entered and electronically signed by ELLA PHAM LCSWA 08/09/18 10:47: Discharge - Discharge Clinical Impression: Behavioral change, Chronic hyponatremia Condition: Stable Disposition: HOME, SELF-CARE Additional Instructions: You have been evaluated both medical and behavioral health teams have been deemed appropriate for discharge. 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 Please continue taking medications as previously prescribed during your recent [facility] visit. To clarify home medications: Thiamine 100 mg daily Benicar 40 mg daily Depakote 500 mg twice daily Norvasc 10 mg daily BuSpar 5 mg twice daily risperidone 0.25 mg every 8 AM and 3 PM Please do not take your home medication of Trazadone AT ANY TIME, IF YOUR SYMPTOMS CHANGE SIGNIFICANTLY OR WORSEN OR YOU DEVELOP NEW SYMPTOMS, RETURN TO THE EMERGENCY DEPARTMENT IMMEDIATELY FOR RE-EVALUATION. Original Note: ED General - General Stated Complaint: WEAKNESS Time Seen by Provider: 08/08/18 09:26 TRAVEL OUTSIDE OF THE [place] IN LAST 30 DAYS: No - HPI Notes: Patient is a 48-year-old male that presents to the emergency department for chief complaint of altered level of consciousness. Patient presented by EMS from home. EMS reported he was feeling confused while walking to the bathroom and sat on his kitchen floor. Patient was recently diagnosed with Warnicke's encephalopathy and has a history of alcoholism. HPI is significantly limited since EMS is no longer present to ask more questions of and patient has no family. Patient is only answering questions "no" or "I do not know". Past Medical History: Warnicke's encephalopathy, chronic alcoholism Past Surgical History: Reviewed in chart Social History: Daily alcohol abuse Family History: Reviewed and noncontributory for presenting illness Allergies: Reviewed, see documented allergy list. REVIEW OF SYSTEMS: Unable to obtain because of acuity of condition PHYSICAL EXAMINATION: Vital signs reviewed, nursing noted reviewed. GENERAL: Well-appearing, well-nourished and in no acute distress. HEAD: Atraumatic, normocephalic. EYES: No ophthalmoplegia or nystagmus, eyes appear normal, extraocular movements intact, sclera anicteric, conjunctiva are normal. ENT: nares patent, oropharynx clear without exudates. Mildly dry mucous membranes. NECK: Normal range of motion, supple without lymphadenopathy LUNGS: Breath sounds clear to auscultation bilaterally and equal. No wheezes rales or rhonchi. HEART: Regular rate and rhythm without murmurs ABDOMEN: Soft, nontender, normoactive bowel sounds. No rebound, guarding, or rigidity. No masses appreciated. EXTREMITIES: Nontender, good range of motion, no pitting or edema. NEUROLOGICAL: Moves all extremities spontaneously Motor and sensory grossly in tact on exam. Following commands. GCS 15 PSYCH: Flat affect, withdrawn SKIN: Warm, Dry, normal turgor, no rashes or lesions noted on exposed skin - Related Data Allergies/Adverse Reactions: No Known Allergies Allergy (Verified 07/04/18 12:52) Past Medical History - Social History Smoking Status: Never Smoker Family History: Reviewed & Not Pertinent - Past Medical History Cardiac Medical History: Reports: Hx Hypertension Denies: Hx Atrial Fibrillation, Hx Congestive Heart Failure, Hx Heart Attack, Hx Hypercholesterolemia Pulmonary Medical History: Denies: Hx Asthma, Hx Bronchitis, Hx COPD, Hx Pneumonia, Hx Tuberculosis Neurological Medical History: Denies: Hx Migraine, Hx Seizures Endocrine Medical History: Denies: Hx Diabetes Mellitus Type 1, Hx Diabetes Mellitus Type 2 Renal/ Medical History: Denies: Hx End Stage Renal Disease, Hx Kidney Stones, Hx Peritoneal Dialysis GI Medical History: Denies: Hx Gastroesophageal Reflux Disease, Hx Hiatal Hernia, Hx Ulcer Musculoskeletal Medical History: Denies Hx Arthritis Psychiatric Medical History: Reports: Hx Depression Past Surgical History: Reports: Hx Appendectomy, Hx Oral Surgery, Hx Orthopedic Surgery. Denies: Hx Abdominal Surgery, Hx Bowel Surgery, Hx Cardiac Catheterization, Hx Cardiac Surgery, Hx Cholecystectomy, Hx Genitourinary Surgery, Hx Kidney (Renal Surgery), Hx Neurologic Surgery, Hx Nose Surgery, Hx Open Heart Surgery, Hx Pancreatic Surgery, Hx Pituitary Surgery, Hx Rectal Surgery, Hx Testicular Surgery, Hx Thyroid Surgery, Hx Tonsillectomy, Hx Urinary Tract Surgery, Hx Vascular Surgery - Immunizations Hx Diphtheria, Pertussis, Tetanus Vaccination: Yes Physical Exam - Vital signs Vitals: Resp Pulse Ox 15 99 08/08/18 09:27 08/08/18 09:27 Course - Re-evaluation Re-evalutation: 08/08/18 09:37 Vitals reviewed. Nursing notes reviewed. I have very limited information regarding patient's presentation to the ED today his vital signs are stable and he does not appear to be in any acute distress. He is only answering questions with "no" or "I do not know". He has a GCS of 15. 08/08/18 12:22 Patient reevaluated. He is still hyponatremic but does appear to be at his baseline sodium. He has received IV fluids in the emergency room. Patient seems more conversational than earlier but is still answering questions very minimally and has a flat withdrawn affect. He was evaluated by psych who knows him well. his current behavior is different than when he has been in with Warnicke's encephalopathy. he does have family at bedside now who states he has not been able to get his BuSpar or Risperdal filled. They are having a dif ficult time obtaining power of estate planning attorney since he has periods of lucency where he can make decisions for himself. Currently patient does not have capacity to make medical decisions. He will remain in the emergency room for further psych evaluation. Currently awaiting medication recommendations by psych. Depakote level will be obtained since family states he is likely not taking that medication as well. Laboratory 08/08/18 08/08/18 08/08/18 09:34 09:34 09:34 WBC 7.5 RBC 4.40 Hgb 14.7 Hct 40.5 MCV 92 MCH 33.5 H MCHC 36.4 H RDW 12.7 Plt Count 438 Seg Neutrophils % 74.0 Lymphocytes % 16.8 Monocytes % 7.6 Eosinophils % 0.6 Basophils % 1.0 Absolute Neutrophils 5.6 Absolute Lymphocytes 1.3 Absolute Monocytes 0.6 Absolute Eosinophils 0.0 Absolute Basophils 0.1 VBG pH VBG pCO2 VBG HCO3 VBG Base Excess Sodium 123.8 L Potassium 3.4 L Chloride 81 L Carbon Dioxide 28 Anion Gap 15 BUN 8 Creatinine 0.64 Est GFR ( Amer) > 60 Est GFR (Non-Af Amer) > 60 Glucose 102 Lactic Acid Calcium 9.8 Total Bilirubin 0.6 Direct Bilirubin 0.2 Neonat Total Bilirubin Not Reportable Neonat Direct Bilirubin Not Reportable Neonat Indirect Bili Not Reportable AST 27 ALT 14 L Alkaline Phosphatase 77 Ammonia Troponin I < 0.012 Total Protein 7.6 Albumin 4.9 Serum Alcohol < 10 08/08/18 08/08/18 08/08/18 09:34 09:34 09:34 WBC RBC Hgb Hct MCV MCH MCHC RDW Plt Count Seg Neutrophils % Lymphocytes % Monocytes % Eosinophils % Basophils % Absolute Neutrophils Absolute Lymphocytes Absolute Monocytes Absolute Eosinophils Absolute Basophils VBG pH 7.43 H VBG pCO2 47.4 VBG HCO3 30.4 VBG Base Excess 5.0 Sodium Potassium Chloride Carbon Dioxide Anion Gap BUN Creatinine Est GFR ( Amer) Est GFR (Non-Af Amer) Glucose Lactic Acid 1.0 Calcium Total Bilirubin Direct Bilirubin Neonat Total Bilirubin Neonat Direct Bilirubin Neonat Indirect Bili AST ALT Alkaline Phosphatase Ammonia < 8.7 L Troponin I Total Protein Albumin Serum Alcohol Chest X-Ray 08/08/18 09:26 IMPRESSION: 1. No significant interval changes since the previous examination dated 08/08/2018. No acute findings. 08/08/18 15:44 Patient was reevaluated and has no change in his mentation. He is still stable. I am still awaiting psych medication recommendations. Patient will remain in the emergency room tonight and be reevaluated by psych in the morning - Vital Signs Vital signs: Temp Pulse Resp BP Pulse Ox 97.9 F 13 95/68 L 94 08/08/18 09:31 08/08/18 14:01 08/08/18 14:00 08/08/18 14:01 - Laboratory Result Diagrams: 08/08/18 09:34 08/08/18 09:34 Laboratory results interpreted by me: 08/08/18 08/08/18 08/08/18 09:34 09:34 09:34 MCH 33.5 H MCHC 36.4 H VBG pH Sodium 123.8 L Potassium 3.4 L Chloride 81 L ALT 14 L Ammonia < 8.7 L Urine Glucose (UA) Urine Ketones Urine Urobilinogen 08/08/18 08/08/18 09:34 14:17 MCH MCHC VBG pH 7.43 H Sodium Potassium Chloride ALT Ammonia Urine Glucose (UA) 50 H Urine Ketones TRACE H Urine Urobilinogen 2.0 H - EKG Interpretation by Me Additional EKG results interpreted by me: 08/08/18 09:59 Interpreted by myself [id number]: Normal sinus rhythm, rate 69, normal axis, no STEMI Discharge - Discharge Clinical Impression: Behavioral change, Chronic hyponatremia Condition: Stable
[2018-08-08 09:48] LABS: ABSOLUTE BASOPHILS # (AUTO) 0.1 10^3/uL (0.0-0.2); ABSOLUTE LYMPHOCYTES (AUTO) 1.3 10^3/uL (0.5-4.7); ABSOLUTE MONOCYTES (AUTO) 0.6 10^3/uL (0.1-1.4); ABSOLUTE NEUT (AUTO) 5.6 10^3/uL (1.7-8.2); EOSINOPHILS % (AUTO) 0.6 % (0-6); HEMATOCRIT 40.5 % (37.9-51.0); HEMOGLOBIN 14.7 g/dL (13.5-17.0); LYMPHOCYTES % (AUTO) 16.8 % (13-45); MEAN CORPUSCULAR HEMOGLOBIN 33.5 pg (27.0-33.4); MEAN CORPUSCULAR HGB CONC 36.4 g/dL (32.0-36.0); MEAN CORPUSCULAR VOLUME 92 fl (80-97); MONOCYTES % (AUTO) 7.6 % (3-13); PLATELET COUNT 438 10^3/uL (150-450); RED CELL DISTRIBUTION WIDTH 12.7 % (11.5-14.0); TOTAL CELLS COUNTED % (AUTO) 100 %; WHITE BLOOD COUNT 7.5 10^3/uL (4.0-10.5)
[2018-08-08 09:50] LABS: VENOUS BLOOD HCO3 30.4 mmol/L (20-32); VENOUS BLOOD PCO2 47.4 mmHg (35-63); VENOUS BLOOD PH 7.43 (7.30-7.42)
[2018-08-08] MEDS ORDERED: THIAMINE HCL 500 MG, FOLIC ACID 1 MG in NORMAL SALINE 250 ML IV ONE (09:53)
--- NOTE | 2018-08-08 10:00 | RADIOLOGY REPORT (SQ) ---
EXAM DESCRIPTION: CHEST SINGLE VIEW COMPLETED DATE/TIME: 08/08/2018 9:51 am REASON FOR STUDY: cough COMPARISON: 07/09/2018 EXAM PARAMETERS: NUMBER OF VIEWS: One view. TECHNIQUE: Single frontal radiographic view of the chest acquired. RADIATION DOSE: NA LIMITATIONS: None. FINDINGS: LUNGS AND PLEURA: No opacities, masses or pneumothorax. No pleural effusion. MEDIASTINUM AND HILAR STRUCTURES: No masses. Contour normal. HEART AND VASCULAR STRUCTURES: Heart normal in size. Normal vasculature. BONES: No acute findings. HARDWARE: Post surgical changes with hardware right clavicle, unchanged finding. OTHER: No other significant finding. IMPRESSION: 1. No significant interval changes since the previous examination dated 08/08/2018. No acute findings. TECHNICAL DOCUMENTATION: JOB ID: [id number] [employer]- All Rights Reserved Reading location - IP/workstation name: [email or web address]
[2018-08-08 10:06] LABS: ALANINE AMINOTRANSFERASE 14 U/L (21-72); ALBUMIN 4.9 g/dL (3.5-5.0); ALKALINE PHOSPHATASE 77 U/L (38-126); ANION GAP 15 (5-19); ASPARTATE AMINO TRANSFERASE 27 U/L (17-59); BILIRUBIN,DIRECT 0.2 mg/dL (0.0-0.4); BILIRUBIN,TOTAL 0.6 mg/dL (0.2-1.3); BLOOD UREA NITROGEN 8 mg/dL (7-20); CALCIUM 9.8 mg/dL (8.4-10.2); CARBON DIOXIDE 28 mmol/L (22-30); CHLORIDE 81 mmol/L (98-107); GLUCOSE 102 mg/dL (75-110); POTASSIUM 3.4 mmol/L (3.6-5.0); SODIUM 123.8 mmol/L (137-145); TOTAL PROTEIN 7.6 g/dL (6.3-8.2)
[2018-08-08 10:11] LABS: ALCOHOL < 10 mg/dL (NONE DETECTED)
[2018-08-08] MEDS ORDERED: NORMAL SALINE 1000 ML 1,000 ML IV ONE (10:45)
--- NOTE | 2018-08-08 12:27 | PSYCHOLOGICAL NOTE ---
Psych Note - Psych Note Date seen by psych provider: 08/08/18 Time seen by psych provider: 12:00 Psych Note: Reason for Consult: AMS Patient's family at bedside Patient's family discloses that the patient has not been able to follow-up with outpatient services because there is been no appointments or family is unable to make the appointment. They were told by Dr. [facility] that they need to get a POA to make the appointment. They state that the patient is unable to actually make his own appointments. They continue to disclose that the patient has run out of BuSpar Risperdal and Bencar because they have not been unable to follow-up. They continue to report that last night while the patient's fianc was at work he was crawling on the floor in the dark looking for her. Patient's girlfriend disclosed that she has been giving him his medications; "the ones that we have.. I cannot give the ones that are missing and we can't get a doctor." Patient is alert and orientated to person, place. Clinician notes patient states he saw clinician last night here at the hospital; is noted the patient was not at the hospital last night. Patient does not have a clear understanding of why he is currently at [facility]. Mood is irritable with flat affect. Thought processes here to be currently linear and organized; however, patient minimally engages in evaluation. Eye contact is constant with little blinking. Attention and concentration is poor. Insight, judgment, impulse control is poor. Medication recommendations as per psychiatric provider, Dr. Koenig are as follows: Depakote sprinkles 500 mg twice daily BuSpar 5 mg twice daily Rispirdone 0.25mg every 8am and every 3pm Diagnosis: Possible neurocognitive disorder; with noted sun downers characteristics History of substance abuse; alcohol Impression/plan: Patient is recommended for overnight mental health observation. Patient is is not presenting currently at baseline. Patient is notably very flat in affect, just laying in bed without moving, and irritable. This is a notable change from previous [facility] visits where he is either overly combative physically or he is very happy and engages with [facility] staff. Family notes that the patient has run out of her Spadoni and BuSpar however still has his Depakote that he has been able to take. Patient is therapeutic on his Depakote per lab work. Patient is recommended to restart all medications and will be reevaluated. Dr. Covington was consulted and the care management of this patient; attending physicians in agreement with recommendations and disposition.
[2018-08-08 14:40] LABS: APPEARANCE,URINE SLIGHTLY-CLOUDY; BILIRUBIN,URINE NEGATIVE (NEGATIVE); COLOR,URINE YELLOW; GLUCOSE, URINE 50 mg/dL (NEGATIVE); KETONES,URINE TRACE mg/dL (NEGATIVE); LEUKOCYTE ESTERASE,URINE NEGATIVE (NEGATIVE); NITRITE,URINE NEGATIVE (NEGATIVE); PROTEIN,URINE NEGATIVE (NEGATIVE); URINE SPECIFIC GRAVITY 1.009
[2018-08-08 15:04] LABS: URINE AMPHETAMINES SCREEN NEGATIVE; URINE BARBITURATES SCREEN NEGATIVE; URINE BENZODIAZEPINES SCREEN NEGATIVE; URINE COCAINE SCREEN NEGATIVE; URINE MARIJUANA (THC) SCREEN NEGATIVE; URINE METHADONE SCREEN NEGATIVE; URINE PHENCYCLIDINE SCREEN NEGATIVE
[2018-08-08] MEDS: BUSPIRONE HCL 10 MG TABLET PO SCH (18:43)
[2018-08-08] MEDS: RISPERIDONE 0.25 MG TABLET PO SCH (18:43)
[2018-08-08] MEDS: DIVALPROEX SODIUM 500 MG TAB.SR.24H PO SCH (18:43)
--- NOTE | 2018-08-08 22:07 | EKG REPORT ---
SEVERITY:- OTHERWISE NORMAL ECG - SINUS RHYTHM S1,S2,S3 PATTERN : Confirmed by: Pooja Austin 08-Aug-2018 22:05:23
[2018-08-09] MEDS ORDERED: FOLIC ACID 1 MG TABLET PO ONE (09:15)
[2018-08-09] MEDS ORDERED: THIAMINE HCL 100 MG TABLET PO ONE (09:15)
--- NOTE | 2018-08-09 09:16 | ER Document Report ---
Doctor's Note Notes: 08/09/18 09:39 48-year-old male history of alcohol abuse. Chronic hyponatremia. Recently ran out of medications. Had flat affect. Currently doing much better. Appropriate in his conversational skills at this time. Denies any complaints. States that he would like to go home now. I am going to repeat his thiamine and folate as well as sodium p.o. We will repeat his BMP. If all looks good we will likely be able to discharge shortly. Currently his physical exam is unremarkable. Heart is regular. Lungs are clear. Neurological exam unremarkable. No asterixis. No significant tremor. No focal neurological findings at this time. 08/09/18 11:57 Sodium pretty much at his baseline. We have given him sodium here. I will refill all of his medications. Patient has been able to make an appointment with his neurologist. Seems to be at his baseline. Will DC at this time. Discharge - Discharge Clinical Impression: Behavioral change, Chronic hyponatremia Condition: Stable Disposition: HOME, SELF-CARE Additional Instructions: You have been evaluated both medical and behavioral health teams have been deemed appropriate for discharge. 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 Please continue taking medications as previously prescribed during [facility]. To clarify home medications: Thiamine 100 mg daily Benicar 40 mg daily Depakote 500 mg twice daily Norvasc 10 mg daily BuSpar 5 mg twice daily risperidone 0.25 mg every 8 AM and 3 PM Please do not take your home medication of Trazadone Please follow through with the appointment you made with Dr. Ken for August 22, 2018 at 11:30 AM. AT ANY TIME, IF YOUR SYMPTOMS CHANGE SIGNIFICANTLY OR WORSEN OR YOU DEVELOP NEW SYMPTOMS, RETURN TO THE EMERGENCY DEPARTMENT IMMEDIATELY FOR RE-EVALUATION. Your hyponatremia requires sodium on a regular basis. Please continue with your sodium tablets as instructed. Follow-up with your neurologist as soon as possible. Prescriptions: Amlodipine Besylate [Norvasc 10 mg Tablet] 10 mg PO DAILY 30 Days #30 tablet Buspirone HCl [Buspar 5 mg Tablet] 1 tab PO BID 30 Days #60 tab Divalproex Sodium [Depakote] 500 mg PO BID 30 Days #60 tablet. Olmesartan Medoxomil [Benicar] 40 mg PO DAILY 30 Days #30 tablet Risperidone [Risperdal 0.25 Mg Tablet] 0.25 mg PO BID 30 Days #60 tablet Thiamine HCl [Thiamine 100 mg Tablet] 100 mg PO DAILY 30 Days #30 tablet Referrals: SALEEM KEN MD [COMMUNITY BASED STAFF] - 08/22/18 11:30 am
[2018-08-09] MEDS ORDERED: SODIUM CHLORIDE 1 GM TABLET PO ONE (09:39)
[2018-08-09] MEDS: DIVALPROEX SODIUM 500 MG TAB.SR.24H PO SCH (09:46)
[2018-08-09] MEDS: RISPERIDONE 0.25 MG TABLET PO SCH (09:47)
[2018-08-09] MEDS: BUSPIRONE HCL 10 MG TABLET PO SCH (09:47)
--- NOTE | 2018-08-09 10:46 | PSYCHOLOGICAL NOTE ---
Psych Note - Psych Note Date seen by psych provider: 08/09/18 Time seen by psych provider: 08:15 Psych Note: Reason for Consult: AMS Patient's girlfriend at bedside per patient's request Check-in conducted with patient Patient is currently presenting at baseline smiles and engages with clinician. He discloses that he has not followed up with neurology because he needs to go to unemployment first because he does not have insurance. Patient's elver agrees patient is currently at baseline and has no concerns of the patient returning home. She discloses she would still like assistance with getting patient into Medicaid. Medication recommendations as per psychiatric provider, Dr. Koenig are as follows: Depakote sprinkles 500 mg twice daily BuSpar 5 mg twice daily Rispirdone 0.25mg every 8am and every 3pm Diagnosis: Possible neurocognitive disorder; with noted sun downers characteristics History of substance abuse; alcohol Impression/plan: Patient is cleared from acute psychiatric services. Patient is currently presenting at baseline; smiles and engages with clinician. He reports he is ready to return home and patient's elver reports she has no concerns with the patient returning home with her. Patient's family has been working and trying to get patient outpatient services however they have been having difficulties because the patient is resistant. Clinician attempts psychoeducation with patient however patient is adamant that he must go to unemployment before he can make an appointment to see a neurologist. He states he understands that going to neurology is to help identify a true diagnosis to better develop treatment plan. Dr. Covington was consulted and the care management of this patient; attending physicians in agreement with recommendations and disposition.
[2018-08-09 11:30] LABS: ANION GAP 10 (5-19); BLOOD UREA NITROGEN 10 mg/dL (7-20); CALCIUM 9.5 mg/dL (8.4-10.2); CARBON DIOXIDE 27 mmol/L (22-30); CHLORIDE 91 mmol/L (98-107); GLUCOSE 91 mg/dL (75-110); POTASSIUM 4.4 mmol/L (3.6-5.0); SODIUM 127.6 mmol/L (137-145)
[2018-08-09 12:37] VITALS: BP 117/69
== END 2018-08-09 12:30 | disposition home or self-care (01) ==
LOC: ER 09:11
DX: F91.9 Conduct disorder, unspecified (principal); E87.1 Hypo-osmolality and hyponatremia; I10 Essential (primary) hypertension
CPT/HCPCS: 93005; 99285; 96360; 96361; 36415; 80307 ×2; 82140; 85025; 80048; 80053; 81001; 84484; 80164; 82803; 83605; 71045; 93010; J3490 ×4; J3411; J7030; J7050; J7120

== ENCOUNTER 2020-01-02 18:27 | Inpatient (IN) | payer SELFPAY ==
--- NOTE | 2020-01-02 18:49 | PSYCHOLOGICAL NOTE ---
Psych Note - Psych Note Date seen by psych provider: 01/02/20 Time seen by psych provider: 18:30 Psych Note: Reason for Consult: Manic Patient presented to [facility] ED via EMS. Patient presents manic with flight of thought, repetitive movements, thought processes and speech patterns. Patient reports he has been drinking and not taking his medication. " I don't like the number one...cause I can't spell it....I am scared....is this mask safe...ok I will wear it (puts on mask)....eye...you know what that is?(takes off mask) its the eye (points to his eye) can you see it? can I put my glasses on? it is safe? (puts on his glasses)...I can spell it...I am scared (takes of glasses)...why does everyone have a mask on...Am I safe? Do you think I will hurt you? Ok..I will put it on (puts on mask)...I am not a danger (takes of mask) I don't need it.." Patient spoke with community brim blocker responder, Charlie Galicia. He reports that the patient was able to de-escalate to safely transport to [facility] without the use of medications. He reports patient's girlfriend arrived home today after being gone for 1 week found the patient in his current condition. She reportedly was at a baseball camp for her son. Medication recommendations as per psychiatric provider, Dr. Koenig are as follows: Zyprexa Zydis (ODT) 2.5mg once Depakote sprinkles 500 mg twice daily BuSpar 5 mg twice daily Rispirdone 0.25mg every 8am and every 3pm as needed Clinical Presentation: Manic Repetitive movements, thought processes, speech flight of thought Diagnosis: history of Possible neurocognitive disorder; with noted sun downers characteristics History of substance abuse; alcohol Impression\\plan: Patient is recommended for 24-hour petition for evaluation: Paperwork is signed and placed on patient's chart. patient has a history of both mental health and substance abuse. Patient has not been seen by this clinician or department in approximately a year and a half. Plan of care involved patient being supervised with his medication from family and girlfriend. Patient's girlfriend reportedly has been gone for approximately 1 week for baseball camp for her son. It appears the patient has been not taking his medication and drinking alcohol during this last week. Medication recommendations have been provided. Evaluation ongoing. Dr. Covington was consulted in the care management of this patient; attending physician is in agreement with recommendations and disposition.
[2020-01-02] MEDS ORDERED: OLANZAPINE 5 MG TAB.RAPDIS PO ONE (19:09)
[2020-01-02] MEDS ORDERED: RISPERIDONE 0.25 MG TABLET PO PRN (19:12)
[2020-01-02] MEDS: BUSPIRONE HCL 10 MG TABLET PO SCH (19:18)
[2020-01-02] MEDS: DIVALPROEX SODIUM 125 MG CAP.SPRINK PO SCH (19:19)
[2020-01-02 19:42] LABS: APPEARANCE,URINE CLEAR; BILIRUBIN,URINE NEGATIVE (NEGATIVE); COLOR,URINE YELLOW; GLUCOSE, URINE 50 mg/dL (NEGATIVE); KETONES,URINE 80 mg/dL (NEGATIVE); LEUKOCYTE ESTERASE,URINE NEGATIVE (NEGATIVE); NITRITE,URINE NEGATIVE (NEGATIVE); PROTEIN,URINE 30 mg/dL (NEGATIVE); UROBILINOGEN,URINE NEGATIVE mg/dL (<2.0)
[2020-01-02 19:55] LABS: URINE AMPHETAMINES SCREEN NEGATIVE; URINE BARBITURATES SCREEN NEGATIVE; URINE BENZODIAZEPINES SCREEN NEGATIVE; URINE COCAINE SCREEN NEGATIVE; URINE MARIJUANA (THC) SCREEN NEGATIVE; URINE METHADONE SCREEN NEGATIVE; URINE PHENCYCLIDINE SCREEN NEGATIVE
[2020-01-02 20:56] LABS: ALBUMIN 5.4 g/dL (3.5-5.0); ALKALINE PHOSPHATASE 79 U/L (38-126); ASPARTATE AMINO TRANSFERASE 49 U/L (17-59); BILIRUBIN,DIRECT 0.1 mg/dL (0.0-0.4); BILIRUBIN,TOTAL 1.2 mg/dL (0.2-1.3); BLOOD UREA NITROGEN 5 mg/dL (7-20); CALCIUM 9.6 mg/dL (8.4-10.2); CARBON DIOXIDE 23 mmol/L (22-30); CHLORIDE 71 mmol/L (98-107); GLUCOSE 103 mg/dL (75-110); POTASSIUM 4.8 mmol/L (3.6-5.0); TOTAL PROTEIN 8.2 g/dL (6.3-8.2)
[2020-01-02 20:57] LABS: ANION GAP 13 (5-19)
[2020-01-02 20:58] LABS: ACETAMINOPHEN < 10 ug/mL (10-30); ALCOHOL < 10 mg/dL (NONE DETECTED); SALICYLATE < 1.0 mg/dL (2.0-20.0)
[2020-01-02 21:06] LABS: ABSOLUTE LYMPHOCYTES (AUTO) 0.8 10^3/uL (0.5-4.7); ABSOLUTE MONOCYTES (AUTO) 0.3 10^3/uL (0.1-1.4); ABSOLUTE NEUT (AUTO) 4.8 10^3/uL (1.7-8.2); BASOPHILS % (AUTO) 0.2 % (0-2); EOSINOPHILS % (AUTO) 0.4 % (0-6); HEMATOCRIT 38.6 % (37.9-51.0); LYMPHOCYTES % (AUTO) 13.5 % (13-45); MEAN CORPUSCULAR HEMOGLOBIN 33.7 pg (27.0-33.4); MEAN CORPUSCULAR HGB CONC 36.2 g/dL (32.0-36.0); MEAN CORPUSCULAR VOLUME 93 fl (80-97); PLATELET COUNT 353 10^3/uL (150-450); RED BLOOD COUNT 4.15 10^6/uL (4.35-5.55); RED CELL DISTRIBUTION WIDTH 12.6 % (11.5-14.0); SEGMENTED NEUTROPHILS % (AUTO) 80.9 % (42-78); TOTAL CELLS COUNTED % (AUTO) 100 %
--- NOTE | 2020-01-02 21:17 | ER Document Report ---
ED General - General Chief Complaint: Psych Problem Stated Complaint: PSYCH Time Seen by Provider: 01/02/20 18:40 TRAVEL OUTSIDE OF THE [place] IN LAST 30 DAYS: No - HPI Notes: Chief complaint: Altered mental status History of present illness: 49-year-old male with history of chronic alcoholism and Warnicke's encephalopathy now presenting to the emergency department with altered mental status. He was placed on IVC petition by his significant other who stated that she had been out of town and had come back to find him severely altered and is her belief that he has been noncompliant with his medications and has been drinking heavily. I am able to obtain very limited history from the patient due to his altered mentation. I went back and reviewed all of his old records and I note that he was admitted to the hospital here previously in [address] Renee with hyponatremia and we note that his sodium was in the 120s at that time. - Related Data Allergies/Adverse Reactions: No Known Allergies Allergy (Verified 07/04/18 12:52) Past Medical History - General Information source: Patient, [facility] Records Cannot obtain history due to: Altered mental status - Social History Smoking Status: Unknown if Ever Smoked Frequency of alcohol use: Heavy Drug Abuse: None Lives with: Spouse/Significant other Family History: Reviewed & Not Pertinent - Past Medical History Cardiac Medical History: Reports: Hx Hypertension Denies: Hx Atrial Fibrillation, Hx Congestive Heart Failure, Hx Heart Attack, Hx Hypercholesterolemia Pulmonary Medical History: Denies: Hx Asthma, Hx Bronchitis, Hx COPD, Hx Pneumonia, Hx Tuberculosis Neurological Medical History: Denies: Hx Migraine, Hx Seizures Endocrine Medical History: Denies: Hx Diabetes Mellitus Type 1, Hx Diabetes Mellitus Type 2 Renal/ Medical History: Denies: Hx End Stage Renal Disease, Hx Kidney Stones, Hx Peritoneal Dialysis GI Medical History: Denies: Hx Gastroesophageal Reflux Disease, Hx Hiatal Hernia, Hx Ulcer Musculoskeletal Medical History: Denies Hx Arthritis Psychiatric Medical History: Reports: Hx Bipolar Disorder, Hx Depression, Hx Schizophrenia Past Surgical History: Reports: Hx Appendectomy, Hx Oral Surgery, Hx Orthopedic Surgery. Denies: Hx Abdominal Surgery, Hx Bowel Surgery, Hx Cardiac Catheterization, Hx Cardiac Surgery, Hx Cholecystectomy, Hx Genitourinary Surgery, Hx Kidney (Renal Surgery), Hx Neurologic Surgery, Hx Nose Surgery, Hx Open Heart Surgery, Hx Pancreatic Surgery, Hx Pituitary Surgery, Hx Rectal Surgery, Hx Testicular Surgery, Hx Thyroid Surgery, Hx Tonsillectomy, Hx Urinary Tract Surgery, Hx Vascular Surgery - Immunizations Hx Diphtheria, Pertussis, Tetanus Vaccination: Yes Physical Exam - Vital signs Vitals: Temp Pulse Resp BP Pulse Ox 98.7 F 77 14 149/93 H 100 01/02/20 20:45 01/02/20 20:45 01/02/20 20:45 01/02/20 20:45 01/02/20 20:45 - Notes Notes: GENERAL: Slender male approximately stated age who was drinking from 2 cups of water when I enter the room. His affect is "unusual". SKIN: Good turgor no rashes. HEAD: Normocephalic atraumatic. EYES: PERRLA. EOMI. Conjunctivae and sclerae clear. EARS: CANALS AND TMS CLEAR. NOSE: CLEAR. MOUTH: Moist mucosa. Good dentition. No stridor or edema. No drooling. NECK: Supple. No masses or thyromegaly. No adenopathy. Carotids 2+ without bruits. No JVD. BACK: Symmetrical without tenderness. CHEST: Respirations unlabored. Breath sounds clear and symmetrical. HEART: Regular rhythm. No murmur gallop or rub. ABDOMEN: Soft nontender without masses, organomegaly or rebound. Bowel sounds normally active. No bruits. GENITALIA: Deferred. EXTREMITIES: No edema. No calf tenderness. Cap refill less than 1.5 seconds. Dorsalis pedis and posterior tibial pulses 3+ and symmetrical. NEUROLOGICAL: GCS 14. Patient is oriented to person and place but not time. Normal gait. Fluent speech. Cranial nerves II through XII intact. Sensorimotor and cerebellar normal. Normal tone. PSYCHIATRIC: Affect is very concrete. He has flight of ideas and appears somewhat manic with loose associations. Course - Re-evaluation Re-evalutation: 01/02/20 21:25 Patient has significant altered mental status and severe hyponatremia with a sodium of 107. 3% saline administered IV. Continuous cardiac monitoring. Pat ient will be admitted to critical care unit. - Vital Signs Vital signs: Temp Pulse Resp BP Pulse Ox 98.7 F 77 14 149/93 H 100 01/02/20 20:45 01/02/20 20:45 01/02/20 20:45 01/02/20 20:45 01/02/20 20:45 - Laboratory Result Diagrams: 01/02/20 20:25 01/02/20 20:25 Laboratory results interpreted by me: 01/02/20 01/02/20 01/02/20 19:00 20:25 20:25 RBC 4.15 L MCH 33.7 H MCHC 36.2 H Seg Neutrophils % 80.9 H Sodium 107.2 L* Chloride 71 L BUN 5 L Creatinine 0.46 L ALT 56 H Albumin 5.4 H Urine Protein 30 H Urine Glucose (UA) 50 H Urine Ketones 80 H Urine Blood SMALL H Salicylates < 1.0 L Acetaminophen < 10 L - EKG Interpretation by Me Additional EKG results interpreted by me: 01/02/20 21:29 Twelve-lead EKG from 2035 hrs. is reviewed contemporaneously by me demonstrating normal sinus rhythm with a rate of 76 and a QRS axis of -46 degrees representing a left axis deviation. Intervals are normal. No acute ST changes. No prior tr acings for comparison. Indication for current study: Altered mental status. Critical Care Note - Critical Care Note Total time excluding time spent on procedures (mins): 35 - IV 3% saline administration for critical hypo-natremia Discharge - Discharge Clinical Impression: Hyponatremia syndrome Altered mental status Qualifiers: Altered mental status type: unspecified Qualified Code(s): R41.82 - Altered mental status, unspecified Condition: Critical Disposition: ADMITTED INPATIENT Admitting Provider: Sara (Filtering Machine Tender) Unit Admitted: ICU
[2020-01-02] MEDS ORDERED: SODIUM CHLORIDE 3% 100 ML IV ONE (21:30)
--- NOTE | 2020-01-02 22:34 | CRITICAL CARE ADMISSION REPORT ---
HPI Date:: 01/02/20 Time:: 10:15 Reason for ICU Reason:: Severe hyponatremia, mental status changes Admission Date/Time & PCP: Admission Date/Time: 01/02/20 21:42 Primary Care Provider: HPI: 49-year-old gentleman with a history of EtOH abuse and Warnicke's encephalopathy. EMS was contacted by his significant other who had been out of town and came home to find him severely altered. She believes he has been dri nking heavily and not taking his medications. Patient presented to ED with flight of ideas and appeared manic. Psychiatry was consulted and again was found to be manic, with repetitive movements, thought processes and flight of thought. Recommendations from psychiatry was to restart his home meds of Zyprexa, Depakote, BuSpar and risperidone. Patient had been seen by psychiatry in the past and is thought to have possible a neurocognitive disorder. Sodium level in the ED was found to be 107.2. Patient has been hospitalized multiple times for hyponatremia however not to this extreme. He was started on 3% saline in the ED and a critical care consult was placed to evaluate for admission. Given the patient's significant mental status changes in conjunction with severe hyponatremia, he is appropriate for an ICU admission. History obtained from:: Clinical documentation. Plan Summary: Mental status changes: We will continue 3% saline and follow sodium levels over the next several hours. Continue psychiatric medications as recommended by his psychiatric provider. Continue to observe closely. Limit p.o. water intake. Past Medical History Cardiac Medical History: Reports: Hypertension Denies: Atrial Fibrillation, Congestive Heart Failure, Myocardial Infarction, Hyperlipidema Pulmonary Medical History: Denies: Asthma, Bronchitis, Chronic Obstructive Pulmonary Disease (COPD), Pneumonia, Tuberculosis Neurological Medical History: Denies: Migraine, Seizures Endocrine Medical History: Denies: Diabetes Mellitus Type 1, Diabetes Mellitus Type 2 Renal/ Medical History: Denies: End Stage Renal Disease GI Medical History: Denies: Gastroesophageal Reflux Disease, Hiatal Hernia Musculoskeltal Medical History: Denies: Arthritis Psychiatric Medical History: Reports: Bipolar Disorder, Depression Hematology: Denies: Sickle Cell Disease Past Surgical History Past Surgical History: Reports: Appendectomy, Orthopedic Surgery Denies: Cardiac Catheterization, Cholecystectomy, Tonsillectomy, Vascular Surgery Social/Family History - Social History Lives with: Spouse/Significant other Smoking Status: Unknown if Ever Smoked Frequency of Alcohol Use: Heavy Hx Recreational Drug Use: No Drugs: None Hx Prescription Drug Abuse: No - Medication/Allergies Home Medications: Amlodipine Besylate [Norvasc 10 mg Tablet] 10 mg PO DAILY #30 tablet 07/10/18 Divalproex Sodium [Depakote Sprinkle 125 mg Capsule] 250 mg PO BID #60 cap.sprink 07/10/18 Thiamine HCl [Thiamine 100 mg Tablet] 100 mg PO DAILY #30 tablet 07/10/18 Trazodone HCl [Desyrel 50 mg Tablet] 50 mg PO QHS #30 tablet 07/10/18 Clonidine HCl [Clonidine HCl ER] 0.1 mg PO DAILY 07/13/18 Divalproex Sodium [Depakote ER 500 mg Tab.sr] 500 mg PO BID #14 tab.sr.24h 07/13/18 Risperidone [Risperdal 0.25 mg Tablet] 0.25 mg PO BID #14 tablet 07/13/18 Risperidone [Risperdal 0.25 mg Tablet] 0.25 mg PO BID #30 tablet 07/23/18 Amlodipine Besylate [Norvasc 10 mg Tablet] 10 mg PO DAILY 30 Days #30 tablet 08/09/18 Buspirone HCl [Buspar 5 mg Tablet] 1 tab PO BID 30 Days #60 tab 08/09/18 Divalproex Sodium [Depakote] 500 mg PO BID 30 Days #60 tablet. 08/09/18 Olmesartan Medoxomil [Benicar] 40 mg PO DAILY 30 Days #30 tablet 08/09/18 Risperidone [Risperdal 0.25 Mg Tablet] 0.25 mg PO BID 30 Days #60 tablet 08/09/18 Thiamine HCl [Thiamine 100 mg Tablet] 100 mg PO DAILY 30 Days #30 tablet 08/09/18 Allergies/Adverse Reactions: No Known Allergies Allergy (Verified 07/04/18 12:52) Review of Systems ROS unobtainable: Due to mental status - Patient with significant flight of t hought. Unable to discuss current symptoms or condition. Physical Exam Vital Signs: Temp Pulse Resp BP Pulse Ox 98.7 F 77 13 140/90 H 97 01/02/20 20:45 01/02/20 20:45 01/02/20 22:01 01/02/20 22:00 01/02/20 22:01 General appearance: PRESENT: other - Patient appears anxious but in no significant physical distress. Head exam: PRESENT: atraumatic, normocephalic Eye exam: PRESENT: EOMI, PERRLA Ear exam: PRESENT: normal external ear exam Mouth exam: PRESENT: moist, tongue midline Neck exam: PRESENT: full ROM. ABSENT: JVD Respiratory exam: PRESENT: clear to auscultation thuan, unlabored. ABSENT: accessory muscle use, rales, rhonchi, wheezes Cardiovascular exam: PRESENT: RRR Pulses: PRESENT: normal radial pulses Vascular exam: PRESENT: normal capillary refill GI/Abdominal exam: ABSENT: ascites, tenderness Neurological exam: PRESENT: alert, altered, awake, oriented to person, CN II-XII grossly intact. ABSENT: oriented to situation Psychiatric exam: PRESENT: anxious, manic, unusual affect, other - Flight of ideas. Focused psych exam: PRESENT: flight of ideas Laboratory/Radiographs Laboratory Results: 01/02/20 20:25 01/02/20 20:25 01/02/20 01/02/20 01/02/20 19:00 20:25 20:25 WBC 6.0 RBC 4.15 L Hgb 14.0 Hct 38.6 MCV 93 MCH 33.7 H MCHC 36.2 H RDW 12.6 Plt Count 353 Seg Neutrophils % 80.9 H Sodium 107.2 L* Potassium 4.8 Chloride 71 L Carbon Dioxide 23 Anion Gap 13 BUN 5 L Creatinine 0.46 L Est GFR ( Amer) > 60 Glucose 103 Calcium 9.6 Total Bilirubin 1.2 AST 49 Alkaline Phosphatase 79 Total Protein 8.2 Albumin 5.4 H Urine Color YELLOW Urine Appearance CLEAR Urine pH 7.0 Ur Specific [place] 1.010 Urine Protein 30 H Urine Glucose (UA) 50 H Urine Ketones 80 H Urine Blood SMALL H Urine Nitrite NEGATIVE Ur Leukocyte Esterase NEGATIVE Urine WBC (Auto) 0 Urine RBC (Auto) 0 All labs, radiographs, diagnostic studies and EKGs were personally reviewed: Yes In addition, reports of radiographic and diagnostic studies were read: Yes Critical Time Critical Time (minutes): 65 -: The care of a critically ill patient is dynamic. This note represents a static moment in the admission process. Orders and treatments may be given simultaneously and urgently, and time is not security systems sales representative of the treatment process. This patient requires Critical Care secondary to life threatening organ or limb dysfunction. Without Critical Care services, the patient is at risk for increased mortality and morbidity.
[2020-01-02] MEDS ORDERED: SODIUM CHLORIDE 3% 500 ML IV ONE (23:15)
[2020-01-03] MEDS ORDERED: SODIUM CHLORIDE 3% 500 ML IV ONE (00:07)
[2020-01-03] MEDS ORDERED: HEPARIN SOD (PORCINE) 5,000 UNIT/ML 1 ML VIAL SUBCUT SCH (06:00)
[2020-01-03 07:09] LABS: BLOOD UREA NITROGEN 6 mg/dL (7-20); CALCIUM 9.4 mg/dL (8.4-10.2); GLUCOSE 90 mg/dL (75-110)
[2020-01-03 07:10] LABS: CARBON DIOXIDE 22 mmol/L (22-30); CHLORIDE 87 mmol/L (98-107); POTASSIUM 3.9 mmol/L (3.6-5.0)
[2020-01-03 07:11] LABS: ANION GAP 9 (5-19)
[2020-01-03] MEDS ORDERED: RISPERIDONE 0.25 MG TABLET PO SCH (08:00)
--- NOTE | 2020-01-03 09:26 | PDOC CRITICAL CARE PROG REPORT ---
General Date:: 01/03/20 ICU Day:: 1 Hospital Day:: 1 Resuscitation Status: Full Code Events in the past 12 to 24 Hours:: Sodium better. Awake but confused Review of systems relevant to events:: Neurological. Reason for ICU Addmission:: Severe hyponatremia, mental status changes. Need for 3% saline. - Medications: Medications reviewed and adjusted accordingly: Yes Vasopressors:: None Sedation:: None Physical Exam Vital Signs: Temp Pulse Resp BP Pulse Ox 98.6 F 66 13 124/77 97 01/03/20 08:00 01/03/20 08:00 01/03/20 08:00 01/03/20 08:00 01/03/20 08:00 Intake & Output 01/02/20 01/03/20 01/04/20 06:59 06:59 06:59 Output Total 2500 Balance -2500 Weight 71.5 kg Weight/Height Weight 71.5 kg Height 5 ft 11 in General appearance: PRESENT: no acute distress, cooperative, thin Head exam: PRESENT: atraumatic Eye exam: PRESENT: conjunctiva pink, EOMI, PERRLA. ABSENT: scleral icterus Ear exam: PRESENT: normal external ear exam Mouth exam: PRESENT: moist, tongue midline Respiratory exam: PRESENT: clear to auscultation thuan. ABSENT: rales, rhonchi, wheezes Cardiovascular exam: PRESENT: RRR. ABSENT: diastolic murmur, rubs, systolic murmur GI/Abdominal exam: PRESENT: normal bowel sounds, soft. ABSENT: distended, guarding, mass, organolmegaly, rebound, tenderness Rectal exam: PRESENT: deferred Extremities exam: PRESENT: full ROM. ABSENT: calf tenderness, clubbing, pedal edema Neurological exam: PRESENT: alert, altered, CN II-XII grossly intact Psychiatric exam: PRESENT: agitated Skin exam: PRESENT: dry, intact, warm. ABSENT: cyanosis, rash Laboratory/Radiographs Laboratory Results: 01/02/20 20:25 01/03/20 06:37 01/02/20 01/02/20 01/02/20 19:00 20:25 20:25 WBC 6.0 RBC 4.15 L Hgb 14.0 Hct 38.6 MCV 93 MCH 33.7 H MCHC 36.2 H RDW 12.6 Plt Count 353 Seg Neutrophils % 80.9 H Sodium 107.2 L* Potassium 4.8 Chloride 71 L Carbon Dioxide 23 Anion Gap 13 BUN 5 L Creatinine 0.46 L Est GFR ( Amer) > 60 Glucose 103 Calcium 9.6 Total Bilirubin 1.2 AST 49 Alkaline Phosphatase 79 Total Protein 8.2 Albumin 5.4 H Urine Color YELLOW Urine Appearance CLEAR Urine pH 7.0 Ur Specific [place] 1.010 Urine Protein 30 H Urine Glucose (UA) 50 H Urine Ketones 80 H Urine Blood SMALL H Urine Nitrite NEGATIVE Ur Leukocyte Esterase NEGATIVE Urine WBC (Auto) 0 Urine RBC (Auto) 0 01/03/20 06:37 WBC RBC Hgb Hct MCV MCH MCHC RDW Plt Count Seg Neutrophils % Sodium 118.3 L* Potassium 3.9 Chloride 87 L Carbon Dioxide 22 Anion Gap 9 BUN 6 L Creatinine 0.50 L Est GFR ( Amer) > 60 Glucose 90 Calcium 9.4 Total Bilirubin AST Alkaline Phosphatase Total Protein Albumin Urine Color Urine Appearance Urine pH Ur Specific [place] Urine Protein Urine Glucose (UA) Urine Ketones Urine Blood Urine Nitrite Ur Leukocyte Esterase Urine WBC (Auto) Urine RBC (Auto) Impressions: Hyponatremia, ETOH abuse, non-compliance with medications. EKG: NSR All labs, radiographs, diagnostic studies and EKGs were personally reviewed: Yes In addition, reports of radiographic and diagnostic studies were read: Yes Assessment and Plan - Diagnosis (1) Hyponatremia Is this a current diagnosis for this admission?: Yes Plan: Initial sodium was 107. It is 118 now after 10 hours on 3% NS. Saline off to prevent central pontine myelinolysis. He is said to have Weirnike's. I do not know if this is acute or chronic. Thiamine and folate ordered. (2) Altered mental status, unspecified Qualifiers: Altered mental status type: unspecified Qualified Code(s): R41.82 - Altered mental status, unspecified Is this a current diagnosis for this admission?: Yes Plan: There are multiple reasons for his encephalopathy. ETOH, hyponatremia, Wernike's-acute or chronic. He needs to be back od his psychiatry meds as well. (3) Alcohol abuse Is this a current diagnosis for this admission?: Yes Plan: This is and has been ongoing and ativan may be needed. (4) Wernicke encephalopathy Is this a current diagnosis for this admission?: Yes Plan: As above. Plan Summary: Keep IVC papers for now. His Sodium should be in the 120s before we fully discontinue 3% NS and transfer from the ICU. Critical Time Critical Time (minutes): 35 Level of Care: ICU Anticipated discharge: Home Anticipated DC Timeframe: Other -: 1. The care of a critical patient is a dynamic process. This note is a customer solutions representative synopsis but static in nature. The timeframe for treatments given in order is not necessarily the actual time these treatments may have been done. 2. This patient requires critical care secondary to ongoing requirements for therapy not offered or safe outside the critical care environment. Transfer to a lower level of care will result in altered life or limb morbidity and mortality. 3. Multidisciplinary rounds completed. 4. ABCDE bundle addressed.
[2020-01-03] MEDS ORDERED: FOLIC ACID INJ 5 MG/1 ML 10 ML VIAL IV SCH (10:00)
[2020-01-03] MEDS ORDERED: THIAMINE HCL 100 MG, FOLIC ACID 1 MG in NORMAL SALINE 250 ML IV SCH (10:00)
[2020-01-03] MEDS ORDERED: THIAMINE HCL 100 MG in NORMAL SALINE 50 ML IV SCH (10:00)
--- NOTE | 2020-01-03 10:20 | EKG REPORT ---
SEVERITY:- OTHERWISE NORMAL ECG - SINUS RHYTHM LEFT AXIS DEVIATION : Confirmed by: Pooja Austin 03-Jan-2020 10:19:48
--- NOTE | 2020-01-03 11:02 | PSYCHOLOGICAL NOTE ---
Psych Note - Psych Note Date seen by psych provider: 01/03/20 Time seen by psych provider: 10:45 Psych Note: Reason for Consult: AMS Check in conducted with patient: Patient is calm and engages appropriate with clinician. Patient is now presenting at baseline and is no longer demonstrating manic behaviours. Patient reports he was drinking a lot of water because it has been hot. He admits to some alcohol but states "I don't drink as much alcohol as your guys think I do." Patient reports he has been taking all of his psychiatric medications but thinks he missed his sodium tablets. He denies any thoughts of wanting to harm himself or others and is not demonstrating any behaviors of responding to internal stimuli. Impression/Plan: Patient is recommended for rescind of 24 hour petition for evaluation and is cleared from acute psychiatric services; paperwork is signed and placed in patient's chart. Patient is well known to this clinician and department. He is now presenting at baseline. He denies any mental health concerns and reports he might have missed his sodium tablets while he increased his water intake do to the recent heat. Patient is recommended to follow up with his outpatient providers for continued services. Dr. Covington was consulted on the care and management of this patient; attending physician is in agreement with recommendations and disposition.
[2020-01-03] MEDS: BUSPIRONE HCL 10 MG TABLET PO SCH (11:03)
[2020-01-03] MEDS: DIVALPROEX SODIUM 125 MG CAP.SPRINK PO SCH (11:14)
--- NOTE | 2020-01-03 11:31 | Left Against Medical Advice ---
Against Medical Advice Admission Date/Time: 01/02/20 21:42 Primary Care Provider: Date of Patient Emigration: 01/03/20 - Diagnosis: (1) Hyponatremia Is this a current diagnosis for this admission?: Yes (2) Altered mental status, unspecified Is this a current diagnosis for this admission?: Yes (3) Alcohol abuse Is this a current diagnosis for this admission?: Yes (4) Wernicke encephalopathy Is this a current diagnosis for this admission?: Yes - Summary: Summary: Please see Admission and Progress Notes as well. ANGEL CHAVEZ JR is a 49 M, who LEFT AGAINST MEDICAL ADVICE. The Patient was admitted on 01/02/20 21:42. He is back to baseline according to Umang Mcelroy who knows him. He is talkative, coherent. Tox screen negative for alcohol or other drugs. Normal Na level about 125. He is 118. This will likely rise. I explained that he no longer needs the ICU and I can likely have him home by tomorrow., Nevertheless he wants to sign out AMA. He is certainly coherent to do this and he stated he will gladly do this today.
[2020-01-03 12:16] VITALS: BP 138/89
== END 2020-01-03 12:45 | disposition left against medical advice (07) | DRG 641 ==
LOC: ER 18:27 → EH 21:42 → ICU 22:27
PROVIDERS: ADMIT Anesthesiology; ATTEND Anesthesiology
DX: E87.1 Hypo-osmolality and hyponatremia (principal); E51.2 Wernicke's encephalopathy; R41.82 Altered mental status, unspecified; F10.10 Alcohol abuse, uncomplicated; I10 Essential (primary) hypertension; F31.9 Bipolar disorder, unspecified; Z53.29 Procedure and treatment not carried out because of patient's decision for other reasons; Z79.899 Other long term (current) drug therapy
CPT/HCPCS: 36415; 80048; 80053; 80307; 81001; 85025; 93005; 93010; 99291; J3411; J3490; J7050

== ENCOUNTER 2020-01-11 20:00 | Emergency (ER) | payer SELFPAY ==
[2020-01-11 20:56] LABS: ALBUMIN 5.4 g/dL (3.5-5.0); ALKALINE PHOSPHATASE 79 U/L (38-126); ANION GAP 17 (5-19); ASPARTATE AMINO TRANSFERASE 51 U/L (17-59); BILIRUBIN,DIRECT 0.2 mg/dL (0.0-0.4); BILIRUBIN,TOTAL 0.9 mg/dL (0.2-1.3); BLOOD UREA NITROGEN 21 mg/dL (7-20); CALCIUM 10.3 mg/dL (8.4-10.2); CARBON DIOXIDE 20 mmol/L (22-30); CHLORIDE 91 mmol/L (98-107); GLUCOSE 94 mg/dL (75-110); POTASSIUM 4.5 mmol/L (3.6-5.0); TOTAL PROTEIN 8.2 g/dL (6.3-8.2)
[2020-01-11 20:58] LABS: ABSOLUTE BASOPHILS # (AUTO) 0.1 10^3/uL (0.0-0.2); ABSOLUTE LYMPHOCYTES (AUTO) 0.9 10^3/uL (0.5-4.7); ABSOLUTE MONOCYTES (AUTO) 0.8 10^3/uL (0.1-1.4); ABSOLUTE NEUT (AUTO) 4.8 10^3/uL (1.7-8.2); EOSINOPHILS % (AUTO) 0.1 % (0-6); HEMATOCRIT 38.4 % (37.9-51.0); LYMPHOCYTES % (AUTO) 13.6 % (13-45); MEAN CORPUSCULAR HEMOGLOBIN 34.3 pg (27.0-33.4); MEAN CORPUSCULAR HGB CONC 36.4 g/dL (32.0-36.0); MEAN CORPUSCULAR VOLUME 94 fl (80-97); MONOCYTES % (AUTO) 11.8 % (3-13); PLATELET COUNT 445 10^3/uL (150-450); RED BLOOD COUNT 4.08 10^6/uL (4.35-5.55); SEGMENTED NEUTROPHILS % (AUTO) 73.5 % (42-78); TOTAL CELLS COUNTED % (AUTO) 100 %; WHITE BLOOD COUNT 6.5 10^3/uL (4.0-10.5)
--- NOTE | 2020-01-11 21:06 | ER Document Report ---
ED Psych Disorder / Suicide - General Mode of Arrival: Medic Information source: Emergency Med Personnel TRAVEL OUTSIDE OF THE [place] IN LAST 30 DAYS: No - HPI Patient complains to provider of: Hallucinating. No: Homicidal ideation, Homicidal plan, Homicidal attempt, Overdose, Suicidal ideation, Suicidal plan, Suicidal attempt, Self injury Onset: Other - Unknown at this time Onset was: Cannot confirm Quality of pain: No pain Severity: None Pain Level: Denies Suicide Risk Factors: Chronic illness, Depressed Situational problems related to: Other - Unknown at this time Normal mood: No Associated symptoms: Confused. No: Normal affect, Normal mood Similar symptoms previously: Yes Recently seen / treated by doctor: Yes - Related Data Home Medications: Divalproex, Amlodipine, Olmesartan <SALEEM CASTILLO - Last Filed: 01/11/20 21:08> <ELLA PHAM - Last Filed: 01/13/20 12:16> <JEFFREY JOHNSON - Last Filed: 01/13/20 21:20> - General Chief Complaint: Psych Problem Stated Complaint: MANIC STATE Time Seen by Provider: 01/11/20 20:49 Primary Care Provider: [facility] [Outside] - Follow up in 3-5 days [facility] [Outside] - Follow up as needed YINA ORANTES MD [Primary Care Provider] - Follow up as needed Notes: Patient is a 49-year-old male was brought in by EMS from home with a complaint of unusual behavior. It was reported that patient's roommate/significant other contacted EMS when they arrived home and found patient to be altered in his mentation. They state that he was doing repetitive motions he was picking up and putting down his items in a disheveled room. Patient denies knowing exactly what is going on he is uncertain as to his past medical history. He does state that he went to bed last night and does not remember anything until the EMS arrived today. Patient denies any suicidal homicidal ideations. He does state that he is a little short of breath and that he does smoke. He also states that he does drink but he does not know how much. Patient was last seen here in the emergency room on 01/02/2020. That time he had a diagnosis of severe hyponatremia. And also bizarre behavior. Patient has a past significant medical history for Warnicke's encephalopathy chronic alcoholism, schizophrenia bipolar disease and depression. When asked patient does not know his medications does not know what his medical history is. (SALEEM CASTILLO) - Related Data Allergies/Adverse Reactions: No Known Allergies Allergy (Verified 07/04/18 12:52) Past Medical History - General Information source: Patient, [facility] Records Cannot obtain history due to: Altered mental status - Social History Smoking Status: Current Every Day Smoker Cigarette use (# per day): Yes - Unknown amount Frequency of alcohol use: Heavy Drug Abuse: None, Marijuana Lives with: Spouse/Significant other Family History: Reviewed & Not Pertinent Patient has homicidal ideation: No - Past Medical History Cardiac Medical History: Reports: Hx Hypertension Denies: Hx Atrial Fibrillation, Hx Congestive Heart Failure, Hx Heart Attack, Hx Hypercholesterolemia Pulmonary Medical History: Denies: Hx Asthma, Hx Bronchitis, Hx COPD, Hx Pneumonia, Hx Tuberculosis Neurological Medical History: Denies: Hx Migraine, Hx Seizures Endocrine Medical History: Denies: Hx Diabetes Mellitus Type 1, Hx Diabetes Mellitus Type 2 Renal/ Medical History: Denies: Hx End Stage Renal Disease, Hx Kidney Stones, Hx Peritoneal Dialysis GI Medical History: Denies: Hx Gastroesophageal Reflux Disease, Hx Hiatal Hernia, Hx Ulcer Musculoskeletal Medical History: Denies Hx Arthritis Psychiatric Medical History: Reports: Hx Bipolar Disorder, Hx Depression, Hx Schizophrenia Past Surgical History: Reports: Hx Appendectomy, Hx Oral Surgery, Hx Orthopedic Surgery. Denies: Hx Abdominal Surgery, Hx Bowel Surgery, Hx Cardiac Catheterization, Hx Cardiac Surgery, Hx Cholecystectomy, Hx Genitourinary Surgery, Hx Kidney (Renal Surgery), Hx Neurologic Surgery, Hx Nose Surgery, Hx Open Heart Surgery, Hx Pancreatic Surgery, Hx Pituitary Surgery, Hx Rectal Surgery, Hx Testicular Surgery, Hx Thyroid Surgery, Hx Tonsillectomy, Hx Urinary Tract Surgery, Hx Vascular Surgery - Immunizations Hx Diphtheria, Pertussis, Tetanus Vaccination: Yes <SALEEM CASTILLO - Last Filed: 01/11/20 21:08> Review of Systems - Review of Systems Constitutional: No symptoms reported EENT: No symptoms reported Cardiovascular: No symptoms reported Respiratory: No symptoms reported Gastrointestinal: No symptoms reported Genitourinary: No symptoms reported Male Genitourinary: No symptoms reported Musculoskeletal: No symptoms reported Skin: No symptoms reported Hematologic/Lymphatic: No symptoms reported Neurological/Psychological: See HPI, Confusion, Depression, Anxiety, Other - Michel. denies: Homicidal ideation, Weakness, Lost consciousness, Headaches, Speech impairment, Numbness, Suicidal ideation, Tingling, Tremor <SALEEM CASTILLO - Last Filed: 01/11/20 21:08> Physical Exam - Vital signs Interpretation: Hypertensive <SALEEM CASTILLO - Last Filed: 01/11/20 21:08> - Vital signs Vitals: Temp Pulse Resp BP Pulse Ox 99.2 F 99 18 141/97 H 97 01/11/20 20:07 01/11/20 20:07 01/11/20 20:07 01/11/20 20:07 01/11/20 20:07 - Notes Notes: PHYSICAL EXAMINATION: GENERAL: Patient is a slim appearing male who is in no apparent distress on examination tonight. Patient does appear somewhat confused and displays a very manic type of a presentation. Patient is almost hyper when answering questions he is fidgety with anything that is surrounding him. He could not leave a bandage in place because it kept picking at it. Patient denies suicidal homicidal ideations. But he states he does not know why he is here. He also states that he believes he blacked out last night and does not know what is going on. He does not know his medications he does not know his medical diagno sis is. HEAD: Atraumatic, normocephalic. EYES: Pupils equal round and reactive to light, extraocular movements intact, sclera anicteric, conjunctiva are normal. ENT: Nares patent, oropharynx clear without exudates. Moist mucous membranes. NECK: Normal range of motion, supple without lymphadenopathy LUNGS: Auscultation patient's lungs shows bilateral breath sounds of breath sounds decreased throughout no rhonchi rales or wheeze are heard. HEART: Regular rate and rhythm without murmurs ABDOMEN: Soft, nontender, nondistended abdomen. No guarding, no rebound. No masses appreciated. Musculoskeletal: Normal range of motion, no pitting or edema. No cyanosis. NEUROLOGICAL: Neurological exam does show patient to be alert, confused and slightly manic PSYCH: Psych evaluation shows patient to be slightly hyper anxious manic presentation. SKIN: Warm, Dry, normal turgor, no rashes or lesions noted. (SALEEM CASTILLO) Course - Laboratory Result Diagrams: 01/11/20 20:20 01/11/20 20:20 <SALEEM CASTILLO - Last Filed: 01/11/20 21:08> - Laboratory Result Diagrams: 01/11/20 20:20 01/11/20 20:20 <ELLA PHAM - Last Filed: 01/13/20 12:16> - Laboratory Result Diagrams: 01/11/20 20:20 01/11/20 20:20 <JEFFREY JOHNSON - Last Filed: 01/13/20 21:20> - Re-evaluation Re-evalutation: 01/11/20 21:15 Patient was previously seen here in the hospital and diagnosed with severe hyponatremia. Evidently they figured out what was going on and got that corrected however patient is back tonight with a similar presentation. We will have him IV seed and evaluated tomorrow. (SALEEM CASTILLO) 01/13/20 13:17 Patient with a past medical history of hyponatremia on which he takes mena pplements for. I recommend patient have a repeat serum sodium as his sodium was noted be to low (128.0) when he arrived in the ED. This does appear to be close to patients baseline. Patient's IVC has been rescinded at this time and patient is currently of sound mind and has fully capacity to make medical decisions at this time. Patient denies wanting to have the sodium redrawn as he states he is ready to go home. I discussed with the patient that he may if his sodium is dropping. Patient states he is currently asymptomatic and has medication at home he can take for his sodium and he is aware of the risks of seizure and if he leaves. I also discussed with the patient that his chest xray shows emphysema. He is currently a smoker and I discussed how this would worsen his emphysema. Counseled on smoking cessation. I recommended that he follows up with his primary care provider in regards to his sodium an emphysema. Patient is aware that he is leaving against my medical advice to have a repeat sodium drawn and possible treatment and understands the risks of living. He also verbalizes understanding of need to follow up with his primary care provider for hyponatremia and emphysema and that he may return to the emergency department for worsening symptoms or the development of new symptoms. All questions answered. (JEFFREY JOHNSON) - Vital Signs Vital signs: Temp Pulse Resp BP Pulse Ox 97.4 F 60 16 99/65 L 100 01/13/20 07:31 01/13/20 07:31 01/13/20 07:31 01/13/20 07:31 01/13/20 07:31 - Laboratory Laboratory results interpreted by me: 01/11/20 01/11/20 01/12/20 20:20 20:20 13:00 RBC 4.08 L MCH 34.3 H MCHC 36.4 H Sodium 128.0 L Chloride 91 L Carbon Dioxide 20 L BUN 21 H Calcium 10.3 H Albumin 5.4 H Urine Protein 30 H Urine Glucose (UA) 50 H Urine Ketones 20 H Urine Urobilinogen 4.0 H Salicylates < 1.0 L Acetaminophen < 10 L Discharge <SALEEM CASTILLO - Last Filed: 01/11/20 21:08> <ELLA PHAM - Last Filed: 01/13/20 12:16> <JEFFREY JOHNSON - Last Filed: 01/13/20 21:20> - Discharge Clinical Impression: Manic behavior, Hyponatremia Emphysema lung Qualifiers: Emphysema type: unspecified Qualified Code(s): J43.9 - Emphysema, unspecified Condition: Stable Disposition: AGAINST MEDICAL ADVICE Additional Instructions: You have been evaluated both medical and behavioral health teams have been deemed appropriate for discharge. You have been started on an increase of Depakote to 500 mg twice daily, and provided a 2-week prescription; please take as directed. Please follow-up with an outpatient mental health provider for continued services to address your psychiatric symptoms. Your behavioral health provider should be a specialist (i.e. psychiatrist) as your symptoms have not been effectively managed without behavioral health services. Bipolar Disorder Bipolar disorder is also called manic-depressive disorder. Depression alternates with brain hyperactivity called michel. Each phase lasts from several days to a few weeks. We don't know exactly what causes bipolar disorder, but it's treatable. During the "manic phase," you may feel elated and energetic. You may have racing thoughts, rapid speech, increased activity, and grandiose ideas. During this time, you may not realize how poor your judgement is. Inappropriate spending, drug abuse, excessive alcohol use, marriage problems, and irresponsible sexual behavior are common during the manic phase. During the "depressive phase," you might feel depressed, guilty, worthless, fatigued, and unable to concentrate. You might have thoughts of suicide. Good treatments are available for bipolar disorder. Chepachet is a classic drug for bipolar disorder, and is still often useful. If the manic phase is very mild, an antidepressant alone can be prescribed. If the manic phase is very severe, an antipsychotic medicine (such as Haldol) may be needed. The treatment must be matched to your symptoms, so it's important to work closely with your psychiatric care provider. Contact your physician, the hospital emergency center, crisis line, or your counsellor if you are losing control or having self-destructive thoughts. AT ANY TIME, IF YOUR SYMPTOMS CHANGE SIGNIFICANTLY OR WORSEN OR YOU DEVELOP NEW SYMPTOMS, RETURN TO THE EMERGENCY DEPARTMENT IMMEDIATELY FOR RE-EVALUATION. You have been counseled that your serum sodium may be lower than it was initially on your arrival. I do recommend you have a repeat sodium lab drawn. You are leaving against my medical advice to have the lab repeated prior to your discharge. I do recommend you follow up with your primary care provider immediately to have repeat labs drawn in case your sodium does decrease. Prescriptions: Divalproex Sodium [Depakote] 500 mg PO BID 7 Days #28 tablet. Referrals: YINA ORANTES MD [Primary Care Provider] - Follow up as needed [facility] [Outside] - Follow up as needed [facility] [Outside] - Follow up in 3-5 days
[2020-01-11 21:08] LABS: ACETAMINOPHEN < 10 ug/mL (10-30); ALCOHOL < 10 mg/dL (NONE DETECTED); SALICYLATE < 1.0 mg/dL (2.0-20.0)
--- NOTE | 2020-01-11 22:11 | RADIOLOGY REPORT (SQ) ---
EXAM DESCRIPTION: XR CHEST 1 VIEW COMPLETED DATE/TME: 01/11/2020 21:37 CLINICAL HISTORY: 49 years, Male, sob COMPARISON: X-ray chest 08/08/2018 NUMBER OF VIEWS: TECHNIQUE: LIMITATIONS: None. FINDINGS: There is possible emphysema. No evidence of pulmonary infiltrate or pleural effusion. The heart and mediastinum are unremarkable. Pulmonary vascularity appears normal. There is an old fracture of the right clavicle with metallic fixation in place. IMPRESSION: Possible emphysema. copyright 2010 [employer]- All Rights Reserved
[2020-01-11] MEDS ORDERED: DIPHENHYDRAMINE HCL 50 MG/ML VIAL IV ONE (22:48)
[2020-01-11] MEDS ORDERED: HALOPERIDOL LACTATE INJ 5 MG/1 ML VIAL IM ONE (22:49)
[2020-01-11] MEDS ORDERED: LORAZEPAM INJ 2 MG/1 ML VIAL IV ONE (22:50)
--- NOTE | 2020-01-12 01:12 | EKG REPORT ---
SEVERITY:- OTHERWISE NORMAL ECG - SINUS RHYTHM LEFT AXIS DEVIATION : Confirmed by: Mary Dorado MD 12-Jan-2020 01:11:41
[2020-01-12] MEDS ORDERED: NORMAL SALINE 1000 ML 1,000 ML IV ONE (10:51)
[2020-01-12] MEDS ORDERED: DIVALPROEX SODIUM 125 MG CAP.SPRINK PO SCH (12:30)
[2020-01-12] MEDS ORDERED: BUSPIRONE HCL 10 MG TABLET PO SCH ×2 (12:30)
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
[2020-01-12] MEDS ORDERED: THIAMINE HCL 100 MG TABLET PO SCH (13:00)
[2020-01-12] MEDS: LOSARTAN POTASSIUM 50 MG TABLET PO SCH (13:19)
[2020-01-12] MEDS: BUSPIRONE HCL 10 MG TABLET PO SCH ×2 (13:20→21:49)
[2020-01-12] MEDS: AMLODIPINE BESYLATE 10 MG TABLET PO SCH (13:20)
[2020-01-12 13:52] LABS: APPEARANCE,URINE CLEAR; BILIRUBIN,URINE NEGATIVE (NEGATIVE); GLUCOSE, URINE 50 mg/dL (NEGATIVE); KETONES,URINE 20 mg/dL (NEGATIVE); LEUKOCYTE ESTERASE,URINE NEGATIVE (NEGATIVE); NITRITE,URINE NEGATIVE (NEGATIVE); PROTEIN,URINE 30 mg/dL (NEGATIVE); URINE SPECIFIC GRAVITY 1.027
[2020-01-12 13:53] LABS: COLOR,URINE YELLOW
[2020-01-12 14:05] LABS: URINE AMPHETAMINES SCREEN NEGATIVE; URINE BARBITURATES SCREEN NEGATIVE; URINE BENZODIAZEPINES SCREEN NEGATIVE; URINE COCAINE SCREEN NEGATIVE; URINE MARIJUANA (THC) SCREEN NEGATIVE; URINE METHADONE SCREEN NEGATIVE; URINE PHENCYCLIDINE SCREEN NEGATIVE
[2020-01-12] MEDS: DIVALPROEX SODIUM 500 MG TAB.SR.24H PO SCH (18:30)
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
[2020-01-13 07:32] VITALS: BP 99/65
[2020-01-13] MEDS: BUSPIRONE HCL 10 MG TABLET PO SCH (10:12)
[2020-01-13] MEDS: AMLODIPINE BESYLATE 10 MG TABLET PO SCH (10:14)
[2020-01-13] MEDS: LOSARTAN POTASSIUM 50 MG TABLET PO SCH (10:14)
[2020-01-13] MEDS: DIVALPROEX SODIUM 500 MG TAB.SR.24H PO SCH (10:14)
--- NOTE | 2020-01-13 12:23 | PSYCHOLOGICAL NOTE ---
Psych Note - Psych Note Date seen by psych provider: 01/13/20 Time seen by psych provider: 11:25 Psych Note: Reason for Consult: Manic Medication recommendations as per psychiatric provider, Dr. Koenig are as follows: Depakote sprinkles 500 mg twice daily BuSpar 5 mg twice daily Diagnosis: Unspecified Bipolar Possible neurocognitive disorder; with noted sun downers characteristics History of substance abuse; alcohol Impression/Plan: Patient is recommended for rescind of IVC and is cleared from acute psychiatric services; paperwork is signed and placed in patient's chart. Dr. Covington was consulted on the care and management of this patient; attending physician is in agreement with recommendations and disposition.
--- NOTE | 2020-01-13 12:39 | ER Document Report ---
Doctor's Note Notes: 01/13/20 12:35 Patient's vital signs are previous labs, diagnostic imaging reviewed. Reviewed mental health notes, nurses notes and previous vital signs. Patient is in no distress at this time denies any SI or HI. General: alert, oriented Heart: regular rate rhythm Lungs: CTABL Psych: normal affect, no hallucinations or delusions. A&P: Patient was documented to have been cleared by mental health but I have concerns of his sodium still being low. He did receive fluids while in the ER. I discussed with patient wanting a repeat blood draw for further evaluation. (he has currently been resinced from his IVC and of sound mind and capable of making decisions). He does not want the blood drawn if he has to stay in the ER for the results. I discussed with him that I do recommend him having the blood redrawn and he would be leaving against my medical advice without having this lab redrawn. He does have the mental capacity to make this decision. Patient reports he is aware of the risks of leaving to include seizure and stating that he has medications at home to take for his hyponatremia and that he is aware he would be leaving against my recommendations.
== END 2020-01-13 12:45 | disposition left against medical advice (07) ==
LOC: ER 20:00
DX: F31.9 Bipolar disorder, unspecified (principal); E87.1 Hypo-osmolality and hyponatremia; J43.9 Emphysema, unspecified; R41.0 Disorientation, unspecified; F41.9 Anxiety disorder, unspecified; I10 Essential (primary) hypertension; F17.210 Nicotine dependence, cigarettes, uncomplicated; Z79.899 Other long term (current) drug therapy; R06.02 Shortness of breath; Z53.29 Procedure and treatment not carried out because of patient's decision for other reasons
CPT/HCPCS: 93005; 99285; 96372; 96361; 96374; 96375; 36415; 80307 ×4; 85025; 80053; 81001; 71045; 93010; J1200; J1630; J2060; J3490; J7030

== ENCOUNTER 2020-01-18 15:37 | Emergency (ER) | payer SELFPAY ==
[2020-01-18 16:01] VITALS: BP 94/61
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
== END 2020-01-18 17:05 | disposition home or self-care (01) ==
LOC: ER 15:37
DX: Z77.098 Contact with and (suspected) exposure to other hazardous, chiefly nonmedicinal, chemicals (principal); M79.603 Pain in arm, unspecified; M79.606 Pain in leg, unspecified; R20.8 Other disturbances of skin sensation; R07.9 Chest pain, unspecified; I10 Essential (primary) hypertension; F17.210 Nicotine dependence, cigarettes, uncomplicated
CPT/HCPCS: 99283

== ENCOUNTER 2020-01-28 19:55 | Emergency (ER) | payer SELFPAY ==
[2020-01-28 21:34] LABS: ALBUMIN 4.7 g/dL (3.5-5.0); ALKALINE PHOSPHATASE 63 U/L (38-126); ANION GAP 18 (5-19); ASPARTATE AMINO TRANSFERASE 48 U/L (17-59); BILIRUBIN,TOTAL 0.4 mg/dL (0.2-1.3); BLOOD UREA NITROGEN 7 mg/dL (7-20); CALCIUM 9.3 mg/dL (8.4-10.2); CARBON DIOXIDE 18 mmol/L (22-30); CHLORIDE 86 mmol/L (98-107); GLUCOSE 87 mg/dL (75-110); POTASSIUM 4.3 mmol/L (3.6-5.0); TOTAL PROTEIN 7.3 g/dL (6.3-8.2)
[2020-01-28 21:41] LABS: ALCOHOL < 10 mg/dL (NONE DETECTED)
--- NOTE | 2020-01-28 21:49 | ER Document Report ---
Entered by TAMARA CESPEDES SCRIBE 01/28/202105 Acting as scribe for:CHICA PURCELL IV, MD ED General - General Chief Complaint: Probable Seizure Stated Complaint: HEADACHE/SEIZURE Time Seen by Provider: 01/28/20 20:47 Primary Care Provider: ELE MANLEY MD [ACTIVE STAFF] - Follow up as needed Mode of Arrival: Medic Information source: Patient, Emergency Med Personnel Notes: This 49 year old male patient brought in by EMS presents to the ED today with complaints of possible seizure and x1 episode of vomiting that occurred prior to arrival. Patient also mentions a sore throat and a 5/5 headache similar to his prior migraines. Per ED nurse, patient has a history of migraines, alcoholism, and behavioral health issues. Patient reportedly told ED nurse that he does drink ETOH every day, but has not tonight. Denies any other complaints. TRAVEL OUTSIDE OF THE [place] IN LAST 30 DAYS: No - Related Data Allergies/Adverse Reactions: No Known Allergies Allergy (Verified 07/04/18 12:52) Home Medications: Buspirone, Depakote, clonidine Past Medical History - General Information source: Patient, OM Records - Social History Smoking Status: Current Every Day Smoker Cigarette use (# per day): Yes - 0.5 ppd Chew tobacco use (# tins/day): No Smoking Education Provided: No Frequency of alcohol use: Heavy Drug Abuse: None Family History: Reviewed & Not Pertinent - Past Medical History Cardiac Medical History: Reports: Hx Hypertension Psychiatric Medical History: Reports: Hx Bipolar Disorder, Hx Depression, Hx Schizophrenia Past Surgical History: Reports: Hx Appendectomy, Hx Oral Surgery, Hx Orthopedic Surgery - Immunizations Hx Diphtheria, Pertussis, Tetanus Vaccination: Yes Review of Systems - Review of Systems Constitutional: No symptoms reported EENT: See HPI, Throat pain Cardiovascular: No symptoms reported Respiratory: No symptoms reported Gastrointestinal: See HPI, Nausea, Vomiting Genitourinary: No symptoms reported Male Genitourinary: No symptoms reported Musculoskeletal: No symptoms reported Skin: No symptoms reported Hematologic/Lymphatic: No symptoms reported Neurological/Psychological: See HPI, Seizure, Headaches -: Yes All other systems reviewed and negative Physical Exam - Vital signs Vitals: Resp Pulse Ox 17 96 01/28/20 20:02 01/28/20 20:02 Interpretation: Normal - General General appearance: Alert - Talking in full sentences In distress: None - HEENT Head: Normocephalic, Atraumatic Eyes: Normal Pupils: PERRL Pharynx: Normal - Respiratory Respiratory status: No respiratory distress Chest status: Nontender Breath sounds: Normal Chest palpation: Normal - Cardiovascular Rhythm: Regular Heart sounds: Normal auscultation Murmur: No Friction rub: No Gallop: None auscultated - Abdominal Inspection: Normal Distension: No distension Bowel sounds: Normal Tenderness: Nontender - Abdomen soft Organomegaly: No organomegaly - Back Back: Normal, Nontender - Extremities General upper extremity: Normal inspection General lower extremity: Normal inspection - Neurological Neuro grossly intact: Yes - No focal neurological deficits Cognition: Normal Orientation: AAOx4 Sebastian Coma Scale Eye Opening: Spontaneous [place] Coma Scale Verbal: Oriented [place] Coma Scale Motor: Obeys Commands Sebastian Coma Scale Total: 15 Speech: Normal - Psychological Associated symptoms: Normal affect, Normal mood - Skin Skin Temperature: Warm Skin Moisture: Dry Skin Color: Normal Course - Re-evaluation Re-evalutation: 01/29/20 04:34 Patient is resting in no acute distress. Results of ED MSE discussed with concetta [place]. All questions were answered prior to discharge. Emergency signs and symptoms, reasons to return to the emergency department discussed with patient. - Vital Signs Vital signs: Temp Pulse Resp BP Pulse Ox 14 101/73 94 01/29/20 01:05 01/29/20 01:05 01/29/20 01:05 - Laboratory Result Diagrams: 01/28/20 21:40 01/29/20 02:58 Laboratory results interpreted by me: 01/28/20 01/28/20 01/29/20 19:39 21:40 02:58 RBC 3.88 L Hgb 13.0 L Hct 37.6 L MCH 33.6 H Lymph % (Auto) 12.4 L Sodium 122.3 L 126.4 L Chloride 86 L 96 L Carbon Dioxide 18 L BUN 5 L Glucose 127 H Magnesium 2.4 H - EKG Interpretation by Me Additional EKG results interpreted by me: 01/29/20 03:28 EKG obtained on 01/28/2020 at 2115 hrs. was interpreted by this MD. Findings: Normal sinus rhythm, rate 66, normal axis, P waves preceding QRS complexes, QRS complexes appear narrow, there are no obvious patterns of ST segment elevation or depression present to suggest acute myocardial ischemia or infarction. Impression: Normal sinus rhythm with nonspecific ST segments. Discharge - Discharge Clinical Impression: Hyponatremia Condition: Stable Disposition: HOME, SELF-CARE Additional Instructions: Return to the Emergency Department without delay if any worse. HOME CARE INSTRUCTIONS & INFORMATION: Thank you for choosing us for your medical needs. We hope you're satisfied with the care you received. After you leave, you must properly care for your problem and, at the same time, observe its progress. Any condition can change. Some illnesses can change rapidly over hours or days. If your condition worsens, return to the Emergency Department or see your physician promptly. ABOUT YOUR X-RAYS AND EKG'S: If you had an EKG or X-rays taken, they have been read by the Emergency Physician. The X-rays and EKG's will also be read by a Radiologist or Budget Examiner within 24 hours. If discrepancies are noted, you will be notified by telephone. Please be certain the ED has a correct telephone number & address where you can be reached. Also, realize that some fractures or abnormalities do not show up on initial X-rays. If your symptoms continue, see your physician. ABOUT YOUR LABORATORY TEST: If you had laboratory tests, the results have been reviewed by the Emergency Physician. Some test results (for example cultures) may not be available for several days. You will be contacted if any test result shows you need additional treatment. Please be certain the ED has a correct telephone number and address where you can be reached. ABOUT YOUR MEDICATIONS: You will receive instructions on how to take your medic ine on the prescription label you receive. Additional information may be provided by the Pharmacy. If you have questions afterwards, call the ED for clarification or further instructions. Some prescribed medications may cause drowsiness. Do not perform tasks such as driving a car or operating machinery without consulting your Pharmacist. If you feel you need a refill of pain medication, your condition will need re-evaluation. Please do not call for a refill of any medication. ABOUT YOUR SIGNATURE: Signature of this document acknowledges to followin. Understanding that you received emergency treatment and that you may be released before al medical problems are known or treated. Please be certain the ED has a correct phone number & address where you can be reached. 2. Acknowledgement that you will arrange for follow-up care as recommended. 3. Authorization for the Emergency Physician to provide information to your follow-up Physician in order to maximize your care. AT ANY TIME, IF YOUR SYMPTOMS CHANGE SIGNIFICANTLY OR WORSEN OR YOU DEVELOP NEW SYMPTOMS, RETURN TO THE EMERGENCY DEPARTMENT IMMEDIATELY FOR RE-EVALUATION. OUR GOAL IS TO PROVIDE EXCELLENT MEDICAL CARE! WE HOPE THAT WE HAVE MET YOUR EXPECTATIONS DURING YOUR EMERGENCY DEPARTMENT VISIT AND THAT YOU FEEL YOU HAVE RECEIVED EXCELLENT CARE! Hyponatremia You have an abnormally low level of serum sodium, called hyponatremia. Low serum sodium may cause weakness, fatigue, confusion, or even seizures. Usually, low sodium is due to taking diuretics (water pills), combined with drinking too much water. It can also be due to excessive vomiting or diarrhea. If no obvious cause is evident, further evaluation will be necessary. If the hyponatremia results from taking diuretics, it's treated by restricting the amount of water you can drink. If it's due to vomiting and diarrhea, it's treated by drinking liberal amounts of rehydration solution (for example Lytren or Pedialyte). A follow-up blood test is often done to see that the sodium is returning to normal. Call the physician if you have severe weakness, muscle twitching or cramping, palpitations (pounding or irregular heartbeat), confusion, headache, seizures, or any other new or alarming symptoms. Referrals: ELE MANLEY MD [ACTIVE STAFF] - Follow up as needed I personally performed the services described in the documentation, reviewed and edited the documentation which was dictated to the scribe in my presence, and it accurately records my words and actions.
[2020-01-28 21:55] LABS: ABSOLUTE BASOPHILS # (AUTO) 0.1 10^3/uL (0.0-0.2); ABSOLUTE EOSINOPHILS # (AUTO) 0.1 10^3/uL (0.0-0.6); ABSOLUTE MONOCYTES (AUTO) 0.6 10^3/uL (0.1-1.4); ABSOLUTE NEUT (AUTO) 6.1 10^3/uL (1.7-8.2); BASOPHILS % (AUTO) 1.2 % (0-2); EOSINOPHILS % (AUTO) 1.1 % (0-6); HEMATOCRIT 37.6 % (37.9-51.0); LYMPHOCYTES % (AUTO) 12.4 % (13-45); MEAN CORPUSCULAR HEMOGLOBIN 33.6 pg (27.0-33.4); MEAN CORPUSCULAR HGB CONC 34.7 g/dL (32.0-36.0); MEAN CORPUSCULAR VOLUME 97 fl (80-97); MONOCYTES % (AUTO) 7.7 % (3-13); PLATELET COUNT 344 10^3/uL (150-450); RED BLOOD COUNT 3.88 10^6/uL (4.35-5.55); RED CELL DISTRIBUTION WIDTH 13.2 % (11.5-14.0); SEGMENTED NEUTROPHILS % (AUTO) 77.6 % (42-78); TOTAL CELLS COUNTED % (AUTO) 100 %; WHITE BLOOD COUNT 7.8 10^3/uL (4.0-10.5)
[2020-01-28 23:57] LABS: APPEARANCE,URINE CLEAR; BILIRUBIN,URINE NEGATIVE (NEGATIVE); COLOR,URINE COLORLESS; GLUCOSE, URINE NEGATIVE (NEGATIVE); KETONES,URINE NEGATIVE (NEGATIVE); LEUKOCYTE ESTERASE,URINE NEGATIVE (NEGATIVE); NITRITE,URINE NEGATIVE (NEGATIVE); PROTEIN,URINE NEGATIVE (NEGATIVE); URINE SPECIFIC GRAVITY 1.002; UROBILINOGEN,URINE NEGATIVE mg/dL (<2.0)
[2020-01-29 00:11] LABS: URINE AMPHETAMINES SCREEN NEGATIVE; URINE BARBITURATES SCREEN NEGATIVE; URINE BENZODIAZEPINES SCREEN NEGATIVE; URINE COCAINE SCREEN NEGATIVE; URINE MARIJUANA (THC) SCREEN NEGATIVE; URINE METHADONE SCREEN NEGATIVE; URINE PHENCYCLIDINE SCREEN NEGATIVE
[2020-01-29] MEDS ORDERED: LEVETIRACETAM 1000 MG/NACL-ISO 1,000 MG/100 ML RTUPB IV ONE (01:09)
[2020-01-29 03:25] LABS: ANION GAP 6 (5-19); BLOOD UREA NITROGEN 5 mg/dL (7-20); CALCIUM 8.4 mg/dL (8.4-10.2); CARBON DIOXIDE 24 mmol/L (22-30); CHLORIDE 96 mmol/L (98-107); GLUCOSE 127 mg/dL (75-110)
[2020-01-29 03:34] VITALS: BP 101/73
--- NOTE | 2020-01-29 09:38 | EKG REPORT ---
SEVERITY:- NORMAL ECG - SINUS RHYTHM : Confirmed by: Pooja Austin 29-Jan-2020 09:37:56
== END 2020-01-29 04:59 | disposition home or self-care (01) ==
LOC: ER 19:55
DX: E87.1 Hypo-osmolality and hyponatremia (principal); R11.2 Nausea with vomiting, unspecified; J02.9 Acute pharyngitis, unspecified; R56.9 Unspecified convulsions; I10 Essential (primary) hypertension; G43.909 Migraine, unspecified, not intractable, without status migrainosus; F17.210 Nicotine dependence, cigarettes, uncomplicated; Z79.899 Other long term (current) drug therapy
CPT/HCPCS: 93005; 99284; 96365; 36415; 80307 ×2; 83735; 85025; 80048; 80053; 81001; 93010; J1953